=== PATIENT | male | born 1945 | race African-American/Black ===

== ENCOUNTER 2018-06-08 12:04 | Inpatient (IN) | payer MEDICARE ==
[2018-06-08] MEDS ORDERED: Sodium Chloride 0.65% Nasal 44 ML BOT EA NARE PRN (15:04)
[2018-06-08] MEDS ORDERED: Chloraseptic Spray 180 ml Bottle PO PRN (15:04)
[2018-06-08] MEDS ORDERED: Senokot 8.6 MG TAB PO PRN (15:04)
[2018-06-08] MEDS ORDERED: Milk Of Magnesia 30 ML UDCUP PO PRN (15:04)
[2018-06-08] MEDS ORDERED: Acetaminophen 325 MG TAB PO PRN (15:04)
[2018-06-08] MEDS ORDERED: Ondansetron HCl/PF 4 MG/2 ML Vial IVP PRN (15:04)
[2018-06-08] MEDS ORDERED: Diabetic Tussin 200 MG/10 ML UDCUP PO PRN (15:04)
[2018-06-08] MEDS ORDERED: Nitroglycerin 0.4 MG TAB (25 Tab Bottle) SL PRN (15:04)
[2018-06-08] MEDS ORDERED: hydrALAZINE 20 MG/ML VIAL SLOW IVP PRN (15:04)
[2018-06-08] MEDS ORDERED: Eucerin (Mineral Oil/Petrolatum,White) 30 gm Jar TOP PRN (15:04)
[2018-06-08] MEDS ORDERED: Ondansetron ODT 4 MG TAB PO PRN (15:04)
[2018-06-08] MEDS ORDERED: Loratadine 10 MG TAB PO PRN (15:04)
[2018-06-08] MEDS ORDERED: Mag-Al 1200 mg/1200 mg/30 ML UDCUP PO PRN (15:04)
[2018-06-08] MEDS ORDERED: Zolpidem Tartrate 5 MG TAB PO PRN (15:04)
[2018-06-08] MEDS ORDERED: Loperamide HCl 2 MG CAP PO PRN (15:04)
[2018-06-08] MEDS ORDERED: Artificial Tear Sol 15 ML BOT EA EYE PRN (15:04)
[2018-06-08] MEDS ORDERED: Labetalol HCl 100 MG/20 ML VIAL SLOW IVP PRN (15:04)
[2018-06-08 15:46] VITALS: BMI 18.6
--- NOTE | 2018-06-08 16:08 | HP ---
PRIMARY CARE PHYSICIAN: Dr. Nnamdi Alas. REASON FOR ADMISSION: Transfer from [facility] for left fourth toe infection. HISTORY OF PRESENT ILLNESS: A 72-year-old male who has a history of coronary artery disease, history of prostate cancer, as well as ongoing tobacco abuse disorder, who initially went t o [facility] for evaluation of left fourth toe infection. The patient does not know how i nfection started on the left fourth toe, but [id number]-ide noted that on Wednesday, the patient toenai l fall off and subsequently, they soaked foot in warm water Clorox and bunch of maggots came out on . The patient saw his primary care physician yesterday who [facility] and that is why family member brought him to emergency room for evaluation today. Letitia campos did not have any fever. He denies any trauma. He denies any insect bite. He denies any night swe ats. His pain is too bad about 9/10 in intensity. There is no specific aggravating or relieving fac tor. He describes pain as throbbing in nature. The patient was treated with vancomycin, Zosyn, and he was given tetanus toxoid and Zofran and morphi ne at [facility]. Subsequently, he was transferred to our hospital for higher level of ca re. The patient denies any diabetes history. REVIEW OF SYSTEMS: Please see my HPI for pertinent positive and negative. All other review of syste ms reviewed and negative except as mentioned in the HPI. Constitutional: Weight loss or gain, ability to conduct usual activities. Skin: Rash, itching. Eyes: Double vision, pain. ENT/Mouth: Nose bleeding, neck stiffness, pain, tenderness. Cardiovascular: Palpitations, dyspnea on exertion, orthopnea. Respiratory: Shortness of breath, wheezing, cough, hemoptysis, fever or night sweats. Gastrointestinal: Poor appetite, abdominal pain, heartburn, nausea, vomiting, constipation, or diarrhea. Genitourinary: Urgency, frequency, dysuria, nocturia. Musculoskeletal: Pain, swelling. Neurologic/Psychiatric: Anxiety, depression. Allergy/Immunologic: Skin rash, bleeding tendency. ALLERGIES: No known drug allergy. CURRENT HOME MEDICATIONS: Aspirin 81 mg daily, Lipitor 20 mg p.o. at bedtime, bicalutamide 50 mg p.o . daily, Plavix 75 mg p.o. daily, Lasix 40 mg p.o. daily, Toprol-XL 50 mg p.o. daily, nitroglycerin 0 .4 mg sublingual daily, multivitamin 1 tablet p.o. daily, Protonix 40 mg p.o. daily, potassium chlori de 10 mEq p.o. daily, Tylenol 1 gram q.6 hourly p.r.n., valsartan 80 mg p.o. daily. 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 PAST SURGICAL HISTORY: Stomach surgery for ulcer, partial amputation of bilateral second to fifth fi nger from frostbite, cardiac catheterization with stent placement. PAST PSYCHIATRIC HISTORY: Reviewed and negative. SOCIAL HISTORY: The patient lives with his son and [id number]. He drinks alcohol socially. He smokes about half pack per day. He denies any other illicit drug abuse. He ambulates with a walker . FAMILY HISTORY: No strong family history of premature coronary artery disease, stroke or cancer. EMERGENCY ROOM COURSE: The patient is given vancomycin, Zosyn, Zofran, morphine, tetanus toxoid at [facility]. PHYSICAL EXAMINATION: VITAL SIGNS: On arrival, blood pressure 181/84, pulse 63, respiratory rate 17, temperature 97.9, sat uration 98% on room air, weight 81.6 kilograms. GENERAL: The patient is currently alert, awake, no obvious acute distress. HEAD: Normocephalic, atraumatic. EYES: Pupils round, reactive to light. Extraocular muscle intact. ENT: Oropharynx within normal limits. Moist mucous membranes. No oral lesion, no pharyngeal erythe ma, no exudate. NECK: Supple, no JVD, no thyromegaly, no carotid bruit, no jugular venous distention. LUNGS: Clear to auscultation without any rhonchi or rales. CARDIAC: S1, S2 appears regular. No significant murmur noted, no gallop, no rub. ABDOMEN: Soft, bowel sounds present, nontender, nondistended. No organomegaly, no mass, no suprapub ic tenderness. BACK: Unremarkable. No CVA tenderness. EXTREMITIES: Upper extremity: Passive movement of all joints are normal. Lower extremity: The pat ient does have fourth toe gangrenous type of changes with the nail came out. Tenderness, erythema no josh surrounding that left fourth toe. The patient does have toenail dystrophy. The patient also hahn s have hair loss on both lower extremities. NEUROLOGIC: Nonfocal examination. He moves all 4 limbs. Plantar bilateral flexor. Speech normal. SKIN: No skin rash other than toe cellulitis on the left side on the fourth toe with possible gangre nous changes. PSYCHIATRIC: Normal affect. HEMATOLOGIC: No lymphadenopathy. SIGNIFICANT LABORATORY DATA: CBC: WBC 4.2, hemoglobin 10.1, platelet 230. ESR 103. BMP: Sodium 1 42, potassium 3.8, chloride 106, carbon dioxide 23, anion gap 17, BUN 14, creatinine 0.75, glucose 92 , calcium 10.0. Lactic acid 1.5. LFT: AST 23, ALT 15, alkaline phosphatase 93. CK 44, albumin 4.2 . CRP 1.89. ASSESSMENT AND PLAN: 1. Left fourth toe cellulitis/gangrene, rule out osteomyelitis. This patient had a several maggots as per history. His toe is macerated and he has a toenail came out. His wound is surrounded by eryt buzz and tenderness. At this point, this patient is at high risk for osteomyelitis given his poor ci rculation. He will need MRI of left foot. If toe has osteomyelitis, then we have 2 options, one is IV antibiotic therapy in that case, he will need PICC line and we will consult Dr. Donnelly. If family members and the patient choose surgical option, then we will consult General Surgery for toe amputati on and after that the patient will need wound care as well. We will consult Wound Care team while in hospital as well. We will control his pain with morphine 4 mg every 4 hourly. Smoking cessation co unseling given. If patient decides for surgical intervention, then he will need vascular study to ru le out peripheral vascular disease. Meanwhile, we will continue with empiric antibiotic therapy with vancomycin and Zosyn. Heart healthy diet will be given and we will also provide nutritional supplem ent with Ancelmo b.i.d. to promote wound healing. 2. Coronary artery disease with a history of stent. We will continue aspirin 81 mg p.o. daily, Plav ix 75 mg p.o. daily, Toprol-XL 50 mg p.o. daily and Lipitor 20 mg p.o. at bedtime. We will also cont inue valsartan 80 mg p.o. daily. 3. Dyslipidemia. Continue Lipitor 20 mg p.o. at bedtime. 4. History of congestive heart failure. Currently, the patient appears euvolemic. Type of congesti ve heart failure is not known, but patient is not admitted for congestive heart failure and that is w hy at this point, we will not do echocardiography. Based on his medication, I am suspecting he might have systolic heart failure. We will continue Toprol-XL 50 mg daily, valsartan 80 mg p.o. daily and Lasix 40 mg p.o. daily. 5. Hypertension. We will continue valsartan 80 mg p.o. daily, Toprol-XL 50 mg p.o. daily and will u se p.r.n. basis blood pressure medication. 6. Gastroesophageal reflux disease. We will continue Protonix 40 mg p.o. daily. 7. Tobacco abuse disorder. Smoking cessation counseling given. Healthy lifestyle measures discusse d with the patient. 8. History of prostate cancer. We will continue bicalutamide 50 mg p.o. daily. 9. Leukopenia, likely due to underlying infection. 10. DVT prophylaxis. Lovenox 40 mg subcu daily. 11. Gastrointestinal prophylaxis, Protonix 40 mg p.o. daily. 12. Anemia, normocytic, normochromic. We will continue multivitamin 1 tablet p.o. daily and ferrous sulfate 325 mg p.o. daily. 13. Tobacco abuse disorder. Smoking cessation counseling given. Healthy lifestyle measures discuss ed with the patient and will provide nicotine patch if needed while in hospital. CODE STATUS: The patient is FULL CODE. Patient's son is surrogate decision maker. Disposition plan based on clinical course. We are expecting patient's stay in hospital more than 2 m idnights. Plan of care discussed with the family member in detail.
[2018-06-08] MEDS: Piperacillin/Tazobactam 3.375 GM in Sodium Chloride 0.9% 100 ML IVPB SCH ×2 (16:40→22:12)
[2018-06-08] MEDS: Nicotine 21 MG PATCH TD SCH (16:40)
[2018-06-08] MEDS: Vancomycin HCl 1 GM in Premix Bag 1 BAG IVPB SCH (16:49)
[2018-06-08] MEDS: HYDROcodone/Acetaminophen 5/325 mg Tablet PO PRN (20:27)
[2018-06-08] MEDS: Atorvastatin Calcium 20 MG TAB PO SCH (20:27)
[2018-06-08] MEDS ORDERED: Famotidine 20 MG TAB PO SCH (21:00)
[2018-06-09] MEDS: HYDROcodone/Acetaminophen 5/325 mg Tablet PO PRN ×2 (03:22→16:22)
[2018-06-09] MEDS: Piperacillin/Tazobactam 3.375 GM in Sodium Chloride 0.9% 100 ML IVPB SCH ×4 (04:41→21:52)
[2018-06-09 05:30] LABS: #Eosinphils 0.1 thou/uL (0.0-0.7); #Lymphocytes 0.9 thou/uL (1.20-3.40); #Monocytes 0.4 thou/uL (0.11-0.59); #Neutrophils 1.9 thou/uL (1.40-6.50); %Basophils 0.1 % (0.0-1.0); %Eosinophils 1.5 % (0.0-10.0); %Lymphocytes 27.9 % (21.0-51.0); %Monocytes 12.3 % (0.0-10.0); %Neutrophils 58.2 % (42.0-75.0); Hemoglobin 9.5 g/dL (14.0-18.0); Mean Corpuscular HGB CONC 31.9 g/dL (32.0-36.0); Mean Corpuscular Hemoglobin 27.9 pg (27.0-31.0); Mean Corpuscular Volume 87.5 fL (78.0-98.0); Mean Platelet Volume 9.3 fL (7.4-10.4); Platelet Count 164 thou/uL (130-400); RBC Distribution Width 15.8 % (11.5-14.5); White Blood Cell (WBC) Count 3.3 thou/uL (4.8-10.8)
[2018-06-09] MEDS: Morphine 4 MG/ML VIAL SLOW IVP PRN ×2 (05:51→20:03)
[2018-06-09] MEDS: Vancomycin HCl 1 GM in Premix Bag 1 BAG IVPB SCH ×2 (05:51→17:29)
[2018-06-09 05:54] LABS: Anion Gap 11 mmol/L (10-20); BUN (Urea Nitrogen) 15 mg/dL (8.4-25.7); Calc. Creatinine Clearance 80 mL/min (70-130); Calcium 9.5 mg/dL (7.8-10.44); Carbon Dioxide 24 mmol/L (23-31); Chloride 107 mmol/L (98-107); Estimated GFR-MDRD Greater than 90; Glucose 89 mg/dL (83-110); Potassium 3.4 mmol/L (3.5-5.1); Sodium 139 mmol/L (136-145)
[2018-06-09] MEDS ORDERED: Potassium Chloride 20 MEQ TAB PO SCH (07:45)
[2018-06-09] MEDS: Enoxaparin Sodium 40 MG/0.4 ML SYRINGE SC SCH (08:06)
[2018-06-09] MEDS: Furosemide 40 MG TAB PO SCH (08:06)
[2018-06-09] MEDS: Saccharomyces boulardii 250 MG CAP PO SCH (08:06)
[2018-06-09] MEDS: Clopidogrel Bisulfate 75 MG TAB PO SCH (08:06)
[2018-06-09] MEDS: Potassium Chloride 10 MEQ TAB PO SCH (08:07)
[2018-06-09] MEDS: Bicalutamide 50 MG TAB PO SCH (08:07)
[2018-06-09] MEDS: Multivitamin W/ Minerals 1 TAB PO SCH (08:07)
[2018-06-09] MEDS: Valsartan 80 MG TAB PO SCH (08:12)
--- NOTE | 2018-06-09 12:17 | PDOC.PN ---
- Subjective Encounter Start Date: 06/09/18 Encounter Start Time: 09:30 -: old records requested/rev Patient seen and examined. No new complaints. No overnight events no fever, still has toe pain, - Objective Resuscitation Status: Resuscitation Status FULL:Full Resuscitation MAR Reviewed: Yes Vital Signs & Weight: Vital Signs (12 hours) Temp Pulse Resp BP Pulse Ox 06/09/18 08:00 97.8 F 62 14 125/72 100 06/09/18 04:00 98.1 F 68 16 136/75 100 Weight Weight 145 lb 4 oz I&O: 06/08/18 06/09/18 06/10/18 06:59 06:59 06:59 Intake Total 240 860 Balance 240 860 Result Diagrams: 06/09/18 04:50 06/09/18 04:50 Radiology Reviewed by me: Yes Phys Exam - Physical Examination Constitutional: NAD HEENT: PERRLA, moist MMs, sclera anicteric Neck: no JVD, supple Respiratory: no wheezing, no rales, no rhonchi Cardiovascular: RRR, no significant murmur, no rub Gastrointestinal: soft, non-tender, no distention, positive bowel sounds Musculoskeletal: no edema, pulses present toe gangrene on left side Neurological: non-focal, normal sensation, moves all 4 limbs Lymphatic: no nodes Psychiatric: normal affect, A&O x 3 Skin: no rash, normal turgor Dx/Plan (1) Gangrene of toe of left foot Code(s): I96 - GANGRENE, NOT ELSEWHERE CLASSIFIED Status: Acute (2) Hypokalemia Code(s): E87.6 - HYPOKALEMIA Status: Acute (3) Leucopenia Code(s): D72.819 - DECREASED WHITE BLOOD CELL COUNT, UNSPECIFIED Status: Acute (4) Anemia, normocytic normochromic Code(s): D64.9 - ANEMIA, UNSPECIFIED Status: Chronic (5) CAD (coronary artery disease) Code(s): I25.10 - ATHSCL HEART DISEASE OF [place] CORONARY ARTERY W/O ANG PCTRS Status: Chronic (6) Chronic systolic heart failure, ACC/AHA stage C Code(s): I50.22 - CHRONIC SYSTOLIC (CONGESTIVE) HEART FAILURE Status: Chronic (7) Dyslipidemia Code(s): E78.5 - HYPERLIPIDEMIA, UNSPECIFIED Status: Chronic (8) GERD (gastroesophageal reflux disease) Code(s): K21.9 - GASTRO-ESOPHAGEAL REFLUX DISEASE WITHOUT ESOPHAGITIS Status: Chronic (9) H/O prostate cancer Code(s): Z85.46 - PERSONAL HISTORY OF MALIGNANT NEOPLASM OF PROSTATE Status: Chronic (10) Protein-calorie malnutrition, moderate Code(s): E44.0 - MODERATE PROTEIN-CALORIE MALNUTRITION Status: Chronic (11) Tobacco abuse Code(s): Z72.0 - TOBACCO USE Status: Chronic - Plan cont current plan of care, continue antibiotics * continue vancomycin and zosyn * pain control wih mophin * today will get US arterial doppler to rule out PAD * MRI foot pending * follow culure * wound care * further plan based on MRI . Review of Systems - Review of Systems Constitutional: negative: fever, chills, sweats, weakness, malaise, other Eyes: negative: Pain, Vision Change, Conjunctivae Inflammation, Eyelid Inflammation, Redness, Other ENT: negative: Ear Pain, Ear Discharge, Nose Pain, Nose Discharge, Nose Congestion, Mouth Pain, Mouth Swelling, Throat Pain, Throat Swelling, Other Respiratory: negative: Cough, Dry, Shortness of Breath, Hemoptysis, SOB with Excertion, Pleuritic Pain, Sputum, Wheezing Cardiovascular: negative: chest pain, palpitations, orthopnea, paroxysmal nocturnal dyspnea, edema, light headedness, other Gastrointestinal: negative: Nausea, Vomiting, Abdominal Pain, Diarrhea, Constipation, Melena, Hematochezia, Other Genitourinary: negative: Dysuria, Frequency, Incontinence, Hematuria, Retention , Other Musculoskeletal: Foot Pain. negative: Neck Pain, Shoulder Pain, Arm Pain, Back Pain, Hand Pain, Leg Pain, Other Skin: negative: Rash, Lesions, [place]on, Bruising, Other - Medications/Allergies Allergies/Adverse Reactions: Allergies Allergy/AdvReac Type Severity Reaction Status Date / Time No Known Drug Allergies Allergy Verified 06/09/18 04:17 Medications: Current Medications Acetaminophen (Tylenol) 650 mg PO Q4H PRN PRN Reason: Headache/Fever or Pain Hydrocodone Bitart/Acetaminophen ([place] 5/325) 1 tab PO Q4H PRN PRN Reason: Moderate Pain (4-6) Last Admin: 06/09/18 03:22 Dose: 1 tab Al Hydroxide/Mg Hydroxide (Maalox) 30 ml PO Q6H PRN PRN Reason: Heartburn or Indigestion Artificial Tears (Tears Renewed 15ml Bottle) 0 drop EA EYE PRN PRN PRN Reason: Dry Eyes Aspirin (Aspirin Chewable) 81 mg PO DAILY [facility] Last Admin: 06/09/18 08:06 Dose: 81 mg Atorvastatin Calcium (Lipitor) 20 mg PO HS [facility] Last Admin: 06/08/18 20:27 Dose: 20 mg Bicalutamide (Casodex) 50 mg PO DAILY [facility] Last Admin: 06/09/18 08:07 Dose: 50 mg Clopidogrel Bisulfate (Plavix) 75 mg PO DAILY [facility] Last Admin: 06/09/18 08:06 Dose: 75 mg Enoxaparin Sodium (Lovenox) 40 mg SC 0900 [facility] Last Admin: 06/09/18 08:06 Dose: 40 mg Furosemide (Lasix) 40 mg PO DAILY-AC [facility] Last Admin: 06/09/18 08:06 Dose: 40 mg Guaifenesin (Robitussin Sf) 200 mg PO Q4H PRN PRN Reason: Cough Hydralazine HCl (Apresoline) 10 mg SLOW IVP Q4H PRN PRN Reason: Systolic BP > 180 Piperacillin Sod/Tazobactam (Sod 3.375 gm/ Sodium Chloride) 100 mls @ 200 mls/ hr IVPB 0400,1000,1600,2200 [facility] Last Admin: 06/09/18 09:55 Dose: 100 mls Vancomycin HCl 1 gm/ Device 200 mls @ 200 mls/hr IVPB 0500,1700 [facility] Last Admin: 06/09/18 05:51 Dose: 200 mls Iron/Minerals/Multivitamins (Theragran M) 1 tab PO DAILY [facility] Last Admin: 06/09/18 08:07 Dose: 1 tab Labetalol HCl (Normodyne) 20 mg SLOW IVP Q4H PRN PRN Reason: Systolic BP > 180 Loperamide HCl (Imodium) 2 mg PO PRN PRN PRN Reason: Diarrhea/Loose Stools Loratadine (Claritin) 10 mg PO DAILYPRN PRN PRN Reason: Sinus Symptoms Magnesium Hydroxide (Milk Of Magnesium) 30 ml PO DAILYPRN PRN PRN Reason: Constipation Mineral Oil/White Petrolatum (Eucerin Cream) 0 gm TOP BIDPRN PRN PRN Reason: Dry Skin Miscellaneous Medication (Pharmacy To Dose) 1 each IVPB PRN PRN PRN Reason: Pharmacy to dose Morphine Sulfate (Morphine) 4 mg SLOW IVP Q4H PRN PRN Reason: Pain Last Admin: 06/09/18 05:51 Dose: 4 mg Nicotine (Nicoderm Patch) 21 mg TD Q24HR [facility] Last Admin: 06/08/18 16:40 Dose: 21 mg Nitroglycerin (Nitrostat) 0.4 mg SL Q5MIN PRN PRN Reason: Chest Pain Ondansetron HCl (Zofran Odt) 4 mg PO Q6H PRN PRN Reason: Nausea/Vomiting Ondansetron HCl (Zofran) 4 mg IVP Q6H PRN PRN Reason: Nausea/Vomiting Pantoprazole Sodium (Protonix) 40 mg PO DAILY [facility] Last Admin: 06/09/18 08:07 Dose: 40 mg Phenol (Chloraseptic [place] 180 Ml Bot) 0 ml PO PRN PRN PRN Reason: Sore Throat Potassium Chloride (Klor-Con 10) 10 meq PO QA-[facility] Last Admin: 06/09/18 08:07 Dose: 10 meq Saccharomyces Boulardii (Florastor) 250 mg PO DAILY [facility] Last Admin: 06/09/18 08:06 Dose: 250 mg Senna (Senokot) 2 tab PO HSPRN PRN PRN Reason: Constipation Sodium Chloride ([place] Nasal [place] 0.65%) 0 ml EA NARE QIDPRN PRN PRN Reason: Nasal Congestion Valsartan (Diovan) 80 mg PO DAILY [facility] Last Admin: 06/09/18 08:12 Dose: 80 mg Zolpidem Tartrate (Ambien) 5 mg PO HSPRN PRN PRN Reason: Insomnia
[2018-06-09] MEDS: Nicotine 21 MG PATCH TD SCH (16:22)
[2018-06-09] MEDS: Atorvastatin Calcium 20 MG TAB PO SCH (19:56)
[2018-06-10] MEDS: Piperacillin/Tazobactam 3.375 GM in Sodium Chloride 0.9% 100 ML IVPB SCH ×4 (03:15→21:42)
[2018-06-10] MEDS: Vancomycin HCl 1 GM in Premix Bag 1 BAG IVPB SCH ×2 (04:44→17:02)
[2018-06-10] MEDS: Morphine 4 MG/ML VIAL SLOW IVP PRN ×2 (04:52→19:05)
[2018-06-10 05:03] LABS: Vancomycin, Trough 13.6 ug/mL
[2018-06-10] MEDS: Enoxaparin Sodium 40 MG/0.4 ML SYRINGE SC SCH (07:48)
[2018-06-10] MEDS: Bicalutamide 50 MG TAB PO SCH (07:49)
[2018-06-10] MEDS: Multivitamin W/ Minerals 1 TAB PO SCH (07:49)
[2018-06-10] MEDS: Saccharomyces boulardii 250 MG CAP PO SCH (07:49)
[2018-06-10] MEDS: Potassium Chloride 10 MEQ TAB PO SCH (07:49)
[2018-06-10] MEDS: Valsartan 80 MG TAB PO SCH (07:49)
[2018-06-10] MEDS: Clopidogrel Bisulfate 75 MG TAB PO SCH (07:50)
[2018-06-10] MEDS: Furosemide 40 MG TAB PO SCH (07:50)
--- NOTE | 2018-06-10 11:47 | PDOC.PN ---
- Subjective Encounter Start Date: 06/10/18 Encounter Start Time: 07:50 pt has pain in his left foot, toe is not improving with antibiotics, was not able to keep foot still while in MRI - Objective Resuscitation Status: Resuscitation Status FULL:Full Resuscitation MAR Reviewed: Yes Vital Signs & Weight: Vital Signs (12 hours) Temp Pulse Resp BP Pulse Ox 06/10/18 08:00 97.6 F 73 16 100 06/10/18 07:49 97.6 F 73 16 144/86 H 100 06/10/18 04:00 97.9 F 67 18 156/81 H 99 06/10/18 00:00 97.6 F 68 20 157/83 H 98 Weight Admit Weight 145 lb 4 oz Weight 145 lb 4 oz I&O: 06/09/18 06/10/18 06/11/18 06:59 06:59 06:59 Intake Total 240 1460 360 Balance 240 1460 360 Result Diagrams: 06/09/18 04:50 06/09/18 04:50 Radiology Reviewed by me: Yes Phys Exam - Physical Examination Constitutional: NAD HEENT: PERRLA, moist MMs, sclera anicteric Neck: no JVD, supple Respiratory: no wheezing, no rales, no rhonchi Cardiovascular: RRR, no significant murmur, no rub Gastrointestinal: soft, non-tender, no distention, positive bowel sounds Musculoskeletal: no edema feeble pulse, 4th toe gangrene on left noted Neurological: non-focal, normal sensation, moves all 4 limbs Lymphatic: no nodes Psychiatric: normal affect, A&O x 3 Skin: no rash, normal turgor Dx/Plan (1) Gangrene of toe of left foot Code(s): I96 - GANGRENE, NOT ELSEWHERE CLASSIFIED Status: Acute (2) Hypokalemia Code(s): E87.6 - HYPOKALEMIA Status: Acute (3) Leucopenia Code(s): D72.819 - DECREASED WHITE BLOOD CELL COUNT, UNSPECIFIED Status: Acute (4) Anemia, normocytic normochromic Code(s): D64.9 - ANEMIA, UNSPECIFIED Status: Chronic (5) CAD (coronary artery disease) Code(s): I25.10 - ATHSCL HEART DISEASE OF [place] CORONARY ARTERY W/O ANG PCTRS Status: Chronic (6) Chronic systolic heart failure, ACC/AHA stage C Code(s): I50.22 - CHRONIC SYSTOLIC (CONGESTIVE) HEART FAILURE Status: Chronic (7) Dyslipidemia Code(s): E78.5 - HYPERLIPIDEMIA, UNSPECIFIED Status: Chronic (8) GERD (gastroesophageal reflux disease) Code(s): K21.9 - GASTRO-ESOPHAGEAL REFLUX DISEASE WITHOUT ESOPHAGITIS Status: Chronic (9) H/O prostate cancer Code(s): Z85.46 - PERSONAL HISTORY OF MALIGNANT NEOPLASM OF PROSTATE Status: Chronic (10) Protein-calorie malnutrition, moderate Code(s): E44.0 - MODERATE PROTEIN-CALORIE MALNUTRITION Status: Chronic (11) Tobacco abuse Code(s): Z72.0 - TOBACCO USE Status: Chronic - Plan cont current plan of care, continue antibiotics * suspecting PAD, will consult CT surgeon for further evaluation * MRI result is pending, doubt it was good quality * US arterial doppler result is pending * medication reviewed as below * symptomatic treatment * continue wound care * continue pain control * continue empiric vancomycin and zosyn. Review of Systems - Review of Systems Constitutional: negative: fever, chills, sweats, weakness, malaise, other Eyes: negative: Pain, Vision Change, Conjunctivae Inflammation, Eyelid Inflammation, Redness, Other ENT: negative: Ear Pain, Ear Discharge, Nose Pain, Nose Discharge, Nose Congestion, Mouth Pain, Mouth Swelling, Throat Pain, Throat Swelling, Other Respiratory: negative: Cough, Dry, Shortness of Breath, Hemoptysis, SOB with Excertion, Pleuritic Pain, Sputum, Wheezing Cardiovascular: negative: chest pain, palpitations, orthopnea, paroxysmal nocturnal dyspnea, edema, light headedness, other Gastrointestinal: negative: Nausea, Vomiting, Abdominal Pain, Diarrhea, Constipation, Melena, Hematochezia, Other Genitourinary: negative: Dysuria, Frequency, Incontinence, Hematuria, Retention , Other Musculoskeletal: Foot Pain. negative: Neck Pain, Shoulder Pain, Arm Pain, Back Pain, Hand Pain, Leg Pain, Other - Medications/Allergies Allergies/Adverse Reactions: Allergies Allergy/AdvReac Type Severity Reaction Status Date / Time No Known Drug Allergies Allergy Verified 06/09/18 04:17 Medications: Current Medications Acetaminophen (Tylenol) 650 mg PO Q4H PRN PRN Reason: Headache/Fever or Pain Hydrocodone Bitart/Acetaminophen ([place] 5/325) 1 tab PO Q4H PRN PRN Reason: Moderate Pain (4-6) Last Admin: 06/09/18 16:22 Dose: 1 tab Al Hydroxide/Mg Hydroxide (Maalox) 30 ml PO Q6H PRN PRN Reason: Heartburn or Indigestion Artificial Tears (Tears Renewed 15ml Bottle) 0 drop EA EYE PRN PRN PRN Reason: Dry Eyes Aspirin (Aspirin Chewable) 81 mg PO DAILY [facility] Last Admin: 06/10/18 07:49 Dose: 81 mg Atorvastatin Calcium (Lipitor) 20 mg PO HS [facility] Last Admin: 06/09/18 19:56 Dose: 20 mg Bicalutamide (Casodex) 50 mg PO DAILY [facility] Last Admin: 06/10/18 07:49 Dose: 50 mg Clopidogrel Bisulfate (Plavix) 75 mg PO DAILY [facility] Last Admin: 06/10/18 07:50 Dose: 75 mg Enoxaparin Sodium (Lovenox) 40 mg SC 0900 [facility] Last Admin: 06/10/18 07:48 Dose: 40 mg Furosemide (Lasix) 40 mg PO DAILY-AC [facility] Last Admin: 06/10/18 07:50 Dose: 40 mg Guaifenesin (Robitussin Sf) 200 mg PO Q4H PRN PRN Reason: Cough Hydralazine HCl (Apresoline) 10 mg SLOW IVP Q4H PRN PRN Reason: Systolic BP > 180 Piperacillin Sod/Tazobactam (Sod 3.375 gm/ Sodium Chloride) 100 mls @ 200 mls/ hr IVPB 0400,1000,1600,2200 [facility] Last Admin: 06/10/18 10:17 Dose: 100 mls Vancomycin HCl 1 gm/ Device 200 mls @ 200 mls/hr IVPB 0500,1700 [facility] Last Admin: 06/10/18 04:44 Dose: 200 mls Iron/Minerals/Multivitamins (Theragran M) 1 tab PO DAILY [facility] Last Admin: 06/10/18 07:49 Dose: 1 tab Labetalol HCl (Normodyne) 20 mg SLOW IVP Q4H PRN PRN Reason: Systolic BP > 180 Loperamide HCl (Imodium) 2 mg PO PRN PRN PRN Reason: Diarrhea/Loose Stools Loratadine (Claritin) 10 mg PO DAILYPRN PRN PRN Reason: Sinus Symptoms Magnesium Hydroxide (Milk Of Magnesium) 30 ml PO DAILYPRN PRN PRN Reason: Constipation Mineral Oil/White Petrolatum (Eucerin Cream) 0 gm TOP BIDPRN PRN PRN Reason: Dry Skin Miscellaneous Medication (Pharmacy To Dose) 1 each IVPB PRN PRN PRN Reason: Pharmacy to dose Morphine Sulfate (Morphine) 4 mg SLOW IVP Q4H PRN PRN Reason: Pain Last Admin: 06/10/18 04:52 Dose: 4 mg Nicotine (Nicoderm Patch) 21 mg TD Q24HR [facility] Last Admin: 06/09/18 16:22 Dose: 21 mg Nitroglycerin (Nitrostat) 0.4 mg SL Q5MIN PRN PRN Reason: Chest Pain Ondansetron HCl (Zofran Odt) 4 mg PO Q6H PRN PRN Reason: Nausea/Vomiting Ondansetron HCl (Zofran) 4 mg IVP Q6H PRN PRN Reason: Nausea/Vomiting Pantoprazole Sodium (Protonix) 40 mg PO DAILY [facility] Last Admin: 06/10/18 07:50 Dose: 40 mg Phenol (Chloraseptic [place] 180 Ml Bot) 0 ml PO PRN PRN PRN Reason: Sore Throat Potassium Chloride (Klor-Con 10) 10 meq PO QAM-WM [facility] Last Admin: 06/10/18 07:49 Dose: 10 meq Saccharomyces Boulardii (Florastor) 250 mg PO DAILY [facility] Last Admin: 06/10/18 07:49 Dose: 250 mg Senna (Senokot) 2 tab PO HSPRN PRN PRN Reason: Constipation Sodium Chloride ([place] Nasal [place] 0.65%) 0 ml EA NARE QIDPRN PRN PRN Reason: Nasal Congestion Valsartan (Diovan) 80 mg PO DAILY [facility] Last Admin: 06/10/18 07:49 Dose: 80 mg Zolpidem Tartrate (Ambien) 5 mg PO HSPRN PRN PRN Reason: Insomnia
--- NOTE | 2018-06-10 12:37 | CON ---
DATE OF CONSULTATION: 06/10/2018 HISTORY OF PRESENT ILLNESS: This is a 72-year-old gentleman admitted with some gangrenous changes in his left fourth toe that had been present for about a week according to the patient, although I thin k history is suspect. PAST MEDICAL HISTORY: Hypertension, dyslipidemia, coronary artery disease, longstanding smoking hist ory and alcoholism. PAST SURGICAL HISTORY: Includes finger amputations related to ruano bite on the left hand as well as previous coronary stent and stomach ulcer surgery. SOCIAL HISTORY: The patient is with his recently dying related to open heart surgery in the [place] area. He lives with a son and [id number]. He smokes about a pack of cigarettes a day and drinks a 6 pack of beer a day or more if he can get his hands on it. MEDICATIONS: Atorvastatin 20, aspirin 81, Plavix 75, Protonix 40, Lasix 40, Diovan 80, metoprolol 50 , and bicalutamide 50 a day. ALLERGIES: He reports no allergies. LABORATORY: Laboratory evaluation includes normal renal function. White count is 3300 with a platel et count of 164, hemoglobin of 9.5. PHYSICAL EXAMINATION: NECK: Left carotid bruit. CARDIAC: Regular rate and rhythm with a systolic murmur at the right upper sternal border area. ABDOMEN: Scaphoid, nontender. EXTREMITIES: He has palpable femoral and popliteal pulses bilaterally with no pedal pulses. He has a biphasic, but weak right dorsalis pedis signal. He has a monophasic left dorsalis pedis monophasic left perineal and I am unable to obtain a left posterior tibial signal. He has an open wound on the left fourth toe with no associated erythema, no tenderness to palpation of his foot. REVIEW OF SYSTEMS: The patient denies any chest pain. He does have a history of claudication in the left leg, but gets around with a walker now and does not experience difficulty walking due to his in active lifestyle. He has no dizziness or dyspnea on exertion. He denies any peripheral edema. He d oes occasionally have pain in that foot at night over the past week. PLAN: At this time, the patient has significant tibioperoneal disease and I suspect that an amputati on involving the toe would be unlikely to heal. I have offered to do angiography today and he is aram ble to make up his mind in regards to this. We will check with him tomorrow to see if he is interest ed in pursuing this. We will also obtain a carotid ultrasound given his carotid bruit.
--- NOTE | 2018-06-10 14:10 | ULT ---
CAROTID DOPPLER ULTRASOUND: Date: 06/10/18 HISTORY: Carotid bruit and peripheral arterial disease. COMPARISON: None. TECHNIQUE: Real-time Dejesus scale, color Doppler, and spectral analysis of the bilateral extracranial carotid and vertebral arteries was performed. FINDINGS: There are no elevated peak systolic velocities within the internal carotid arteries. Moderate atheros clerotic plaque. There is abnormally low peak systolic velocity within the right internal carotid artery measuring 12 cm/second. Right ICA/CCA ratio is 0.52. Left ICA/CCA ratio is 0.66. Antegrade flow both vertebral art eries. IMPRESSION: Abnormally low peak systolic velocity right internal carotid artery proximally. This may represent a more proximal stenosis. CT may be beneficial in this patient. POS: DIANA
[2018-06-10] MEDS: Nicotine 21 MG PATCH TD SCH (16:28)
[2018-06-10] MEDS: Atorvastatin Calcium 20 MG TAB PO SCH (20:00)
[2018-06-11] MEDS: Piperacillin/Tazobactam 3.375 GM in Sodium Chloride 0.9% 100 ML IVPB SCH ×4 (04:07→21:50)
[2018-06-11] MEDS: HYDROcodone/Acetaminophen 5/325 mg Tablet PO PRN ×3 (04:19→17:22)
[2018-06-11] MEDS: Vancomycin HCl 1 GM in Premix Bag 1 BAG IVPB SCH ×2 (05:24→18:16)
[2018-06-11 08:06] LABS: Hemoglobin 8.5 g/dL (14.0-18.0); Mean Corpuscular HGB CONC 32.1 g/dL (32.0-36.0); Mean Corpuscular Hemoglobin 27.6 pg (27.0-31.0); Mean Corpuscular Volume 85.8 fL (78.0-98.0); Mean Platelet Volume 8.1 fL (7.4-10.4); Platelet Count 153 thou/uL (130-400); RBC Distribution Width 15.6 % (11.5-14.5); Red Blood Cell (RBC) Count 3.08 mill/uL (4.70-6.10); White Blood Cell (WBC) Count 3.6 thou/uL (4.8-10.8)
[2018-06-11] MEDS: Furosemide 40 MG TAB PO SCH (08:06)
[2018-06-11] MEDS: Enoxaparin Sodium 40 MG/0.4 ML SYRINGE SC SCH ×2 (08:06→08:15)
[2018-06-11] MEDS: Ferrous Gluconate 324 MG TAB PO SCH (08:06)
[2018-06-11] MEDS: Valsartan 80 MG TAB PO SCH (08:06)
[2018-06-11] MEDS: Multivit, Therapeutic 1 TAB PO SCH (08:06)
[2018-06-11] MEDS: Saccharomyces boulardii 250 MG CAP PO SCH (08:06)
[2018-06-11] MEDS: Potassium Chloride 10 MEQ TAB PO SCH (08:06)
[2018-06-11] MEDS: Bicalutamide 50 MG TAB PO SCH (08:06)
[2018-06-11] MEDS: Clopidogrel Bisulfate 75 MG TAB PO SCH (08:06)
[2018-06-11 08:08] LABS: Prothrombin Time 13.3 SEC (12.0-14.7)
[2018-06-11 08:25] LABS: ALT (SGPT) 12 U/L (8-55); AST (SGOT) 15 U/L (5-34); Albumin 3.3 g/dL (3.4-4.8); Alkaline Phosphatase 70 U/L (40-150); Anion Gap 10 mmol/L (10-20); BUN (Urea Nitrogen) 20 mg/dL (8.4-25.7); Bilirubin, Total 0.2 mg/dL (0.2-1.2); Calc. Creatinine Clearance 97 mL/min (70-130); Carbon Dioxide 25 mmol/L (23-31); Chloride 106 mmol/L (98-107); Estimated GFR-MDRD Greater than 90; Globulin 3.4 g/dL (2.4-3.5); Glucose 97 mg/dL (83-110); Potassium 3.8 mmol/L (3.5-5.1); Protein, Total 6.7 g/dL (5.8-8.1); Sodium 137 mmol/L (136-145)
[2018-06-11 08:44] LABS: Band 30 % (5-11); Eosinophils 2 % (0-10); Lymphocytes 27 % (21-51); MDiff Complete? YES; Metamyelocyte 6 % (0-0); Monocytes 4 % (0-10); Myelocyte 1 % (0-0); Neutrophil 26 % (42-75); Reactive Lymphocytes 4 % (0-10)
--- NOTE | 2018-06-11 11:42 | PDOC.PN ---
- Subjective Encounter Start Date: 06/11/18 Encounter Start Time: 09:30 Patient seen and examined. No overnight events pt has still pain in leg, no fever pt is agreed for angiography - Objective Resuscitation Status: Resuscitation Status FULL:Full Resuscitation MAR Reviewed: Yes Vital Signs & Weight: Vital Signs (12 hours) Temp Pulse Resp BP Pulse Ox 06/11/18 08:00 98.1 F 78 16 100 06/11/18 07:42 98.1 F 78 16 115/71 100 06/11/18 04:07 98.0 F 79 16 124/75 100 06/11/18 00:39 98.5 F 80 18 118/78 100 Weight Admit Weight 145 lb 4 oz Weight 145 lb 4 oz I&O: 06/10/18 06/11/18 06/12/18 06:59 06:59 06:59 Intake Total 1460 1607 Balance 1460 1607 Result Diagrams: 06/11/18 07:54 06/11/18 07:54 Phys Exam - Physical Examination Constitutional: NAD HEENT: PERRLA, moist MMs, sclera anicteric Neck: no JVD, supple carotid bruit+ Respiratory: no wheezing, no rales, no rhonchi Cardiovascular: RRR, no significant murmur, no rub Gastrointestinal: soft, non-tender, no distention, positive bowel sounds Musculoskeletal: no edema toe gangrene+ on left feeble pulse Neurological: non-focal, normal sensation, moves all 4 limbs Lymphatic: no nodes Psychiatric: normal affect, A&O x 3 Skin: no rash, normal turgor Dx/Plan (1) Gangrene of toe of left foot Code(s): I96 - GANGRENE, NOT ELSEWHERE CLASSIFIED Status: Acute (2) Hypokalemia Code(s): E87.6 - HYPOKALEMIA Status: Acute (3) Leucopenia Code(s): D72.819 - DECREASED WHITE BLOOD CELL COUNT, UNSPECIFIED Status: Acute (4) Anemia, normocytic normochromic Code(s): D64.9 - ANEMIA, UNSPECIFIED Status: Chronic (5) CAD (coronary artery disease) Code(s): I25.10 - ATHSCL HEART DISEASE OF [place] CORONARY ARTERY W/O ANG PCTRS Status: Chronic (6) Chronic systolic heart failure, ACC/AHA stage C Code(s): I50.22 - CHRONIC SYSTOLIC (CONGESTIVE) HEART FAILURE Status: Chronic (7) Dyslipidemia Code(s): E78.5 - HYPERLIPIDEMIA, UNSPECIFIED Status: Chronic (8) GERD (gastroesophageal reflux disease) Code(s): K21.9 - GASTRO-ESOPHAGEAL REFLUX DISEASE WITHOUT ESOPHAGITIS Status: Chronic (9) H/O prostate cancer Code(s): Z85.46 - PERSONAL HISTORY OF MALIGNANT NEOPLASM OF PROSTATE Status: Chronic (10) Protein-calorie malnutrition, moderate Code(s): E44.0 - MODERATE PROTEIN-CALORIE MALNUTRITION Status: Chronic (11) Tobacco abuse Code(s): Z72.0 - TOBACCO USE Status: Chronic (12) Carotid stenosis Code(s): I65.29 - OCCLUSION AND STENOSIS OF UNSPECIFIED CAROTID ARTERY Status : Chronic (13) PAD (peripheral artery disease) Code(s): I73.9 - PERIPHERAL VASCULAR DISEASE, UNSPECIFIED Status: Chronic - Plan cont current plan of care, continue antibiotics * continue vancomycin and zosyn * wound care * will need angiography and revascularization * medication reviewed as below * symptomatic treatment. Review of Systems - Review of Systems Eyes: negative: Pain, Vision Change, Conjunctivae Inflammation, Eyelid Inflammation, Redness, Other ENT: negative: Ear Pain, Ear Discharge, Nose Pain, Nose Discharge, Nose Congestion, Mouth Pain, Mouth Swelling, Throat Pain, Throat Swelling, Other Respiratory: negative: Cough, Dry, Shortness of Breath, Hemoptysis, SOB with Excertion, Pleuritic Pain, Sputum, Wheezing Cardiovascular: negative: chest pain, palpitations, orthopnea, paroxysmal nocturnal dyspnea, edema, light headedness, other Gastrointestinal: negative: Nausea, Vomiting, Abdominal Pain, Diarrhea, Constipation, Melena, Hematochezia, Other Genitourinary: negative: Dysuria, Frequency, Incontinence, Hematuria, Retention , Other Musculoskeletal: Foot Pain. negative: Neck Pain, Shoulder Pain, Arm Pain, Back Pain, Hand Pain, Leg Pain, Other Skin: negative: Rash, Lesions, [place]on, Bruising, Other - Medications/Allergies Allergies/Adverse Reactions: Allergies Allergy/AdvReac Type Severity Reaction Status Date / Time No Known Drug Allergies Allergy Verified 06/09/18 04:17 Medications: Current Medications Acetaminophen (Tylenol) 650 mg PO Q4H PRN PRN Reason: Headache/Fever or Pain Hydrocodone Bitart/Acetaminophen ([place] 5/325) 1 tab PO Q4H PRN PRN Reason: Moderate Pain (4-6) Last Admin: 06/11/18 08:25 Dose: 1 tab Al Hydroxide/Mg Hydroxide (Maalox) 30 ml PO Q6H PRN PRN Reason: Heartburn or Indigestion Artificial Tears (Tears Renewed 15ml Bottle) 0 drop EA EYE PRN PRN PRN Reason: Dry Eyes Aspirin (Aspirin Chewable) 81 mg PO DAILY [facility] Last Admin: 06/11/18 08:06 Dose: 81 mg Atorvastatin Calcium (Lipitor) 20 mg PO HS [facility] Last Admin: 06/10/18 20:00 Dose: 20 mg Bicalutamide (Casodex) 50 mg PO DAILY [facility] Last Admin: 06/11/18 08:06 Dose: 50 mg Clopidogrel Bisulfate (Plavix) 75 mg PO DAILY [facility] Last Admin: 06/11/18 08:06 Dose: 75 mg Enoxaparin Sodium (Lovenox) 40 mg SC 0900 [facility] Last Admin: 06/11/18 08:15 Dose: Not Given Ferrous Gluconate (Fergon) 324 mg PO QAM-WM [facility] Last Admin: 06/11/18 08:06 Dose: 324 mg Furosemide (Lasix) 40 mg PO DAILY-AC [facility] Last Admin: 06/11/18 08:06 Dose: 40 mg Guaifenesin (Robitussin Sf) 200 mg PO Q4H PRN PRN Reason: Cough Hydralazine HCl (Apresoline) 10 mg SLOW IVP Q4H PRN PRN Reason: Systolic BP > 180 Piperacillin Sod/Tazobactam (Sod 3.375 gm/ Sodium Chloride) 100 mls @ 200 mls/ hr IVPB 0400,1000,1600,2200 [facility] Last Admin: 06/11/18 10:32 Dose: 100 mls Vancomycin HCl 1 gm/ Device 200 mls @ 200 mls/hr IVPB 0500,1700 [facility] Last Admin: 06/11/18 05:24 Dose: 200 mls Labetalol HCl (Normodyne) 20 mg SLOW IVP Q4H PRN PRN Reason: Systolic BP > 180 Loperamide HCl (Imodium) 2 mg PO PRN PRN PRN Reason: Diarrhea/Loose Stools Loratadine (Claritin) 10 mg PO DAILYPRN PRN PRN Reason: Sinus Symptoms Magnesium Hydroxide (Milk Of Magnesium) 30 ml PO DAILYPRN PRN PRN Reason: Constipation Mineral Oil/White Petrolatum (Eucerin Cream) 0 gm TOP BIDPRN PRN PRN Reason: Dry Skin Miscellaneous Medication (Pharmacy To Dose) 1 each IVPB PRN PRN PRN Reason: Pharmacy to dose Morphine Sulfate (Morphine) 4 mg SLOW IVP Q4H PRN PRN Reason: Pain Last Admin: 06/10/18 19:05 Dose: 4 mg Multivitamins (Theragran) 1 tab PO DAILY [facility] Last Admin: 06/11/18 08:06 Dose: 1 tab Nicotine (Nicoderm Patch) 21 mg TD Q24HR [facility] Last Admin: 06/10/18 16:28 Dose: 21 mg Nitroglycerin (Nitrostat) 0.4 mg SL Q5MIN PRN PRN Reason: Chest Pain Ondansetron HCl (Zofran Odt) 4 mg PO Q6H PRN PRN Reason: Nausea/Vomiting Ondansetron HCl (Zofran) 4 mg IVP Q6H PRN PRN Reason: Nausea/Vomiting Pantoprazole Sodium (Protonix) 40 mg PO DAILY [facility] Last Admin: 06/11/18 08:06 Dose: 40 mg Phenol (Chloraseptic [place] 180 Ml Bot) 0 ml PO PRN PRN PRN Reason: Sore Throat Potassium Chloride (Klor-Con 10) 10 meq PO QA-[facility] Last Admin: 06/11/18 08:06 Dose: 10 meq Saccharomyces Boulardii (Florastor) 250 mg PO DAILY [facility] Last Admin: 06/11/18 08:06 Dose: 250 mg Senna (Senokot) 2 tab PO HSPRN PRN PRN Reason: Constipation Sodium Chloride ([place] Nasal [place] 0.65%) 0 ml EA NARE QIDPRN PRN PRN Reason: Nasal Congestion Valsartan (Diovan) 80 mg PO DAILY [facility] Last Admin: 06/11/18 08:06 Dose: 80 mg Zolpidem Tartrate (Ambien) 5 mg PO HSPRN PRN PRN Reason: Insomnia
[2018-06-11] MEDS: Nicotine 21 MG PATCH TD SCH (17:22)
[2018-06-11] MEDS: Atorvastatin Calcium 20 MG TAB PO SCH (20:15)
[2018-06-11] MEDS: Morphine 4 MG/ML VIAL SLOW IVP PRN (20:16)
[2018-06-12] MEDS: Piperacillin/Tazobactam 3.375 GM in Sodium Chloride 0.9% 100 ML IVPB SCH ×4 (04:35→20:50)
[2018-06-12] MEDS: Vancomycin HCl 1 GM in Premix Bag 1 BAG IVPB SCH ×2 (05:34→16:19)
[2018-06-12] MEDS: Furosemide 40 MG TAB PO SCH (08:02)
[2018-06-12] MEDS: Saccharomyces boulardii 250 MG CAP PO SCH (08:02)
[2018-06-12] MEDS: Valsartan 80 MG TAB PO SCH (08:02)
[2018-06-12] MEDS: Clopidogrel Bisulfate 75 MG TAB PO SCH (08:02)
[2018-06-12] MEDS: Bicalutamide 50 MG TAB PO SCH (08:02)
[2018-06-12] MEDS: Multivit, Therapeutic 1 TAB PO SCH (08:02)
[2018-06-12] MEDS: Enoxaparin Sodium 40 MG/0.4 ML SYRINGE SC SCH ×2 (08:03→08:09)
[2018-06-12] MEDS: Ferrous Gluconate 324 MG TAB PO SCH (08:03)
[2018-06-12] MEDS: Potassium Chloride 10 MEQ TAB PO SCH (08:03)
[2018-06-12] MEDS: HYDROcodone/Acetaminophen 5/325 mg Tablet PO PRN (09:08)
--- NOTE | 2018-06-12 10:29 | PDOC.PN ---
- Subjective Encounter Start Date: 06/12/18 Encounter Start Time: 09:40 Patient seen and examined. No new complaints. No overnight events - Objective Resuscitation Status: Resuscitation Status FULL:Full Resuscitation Vital Signs & Weight: Vital Signs (12 hours) Temp Pulse Resp BP Pulse Ox 06/12/18 07:54 98.2 F 73 16 126/68 100 06/12/18 04:35 97.6 F 74 16 121/70 99 06/12/18 00:07 97.5 F L 77 18 146/74 H 99 Weight Admit Weight 145 lb 4 oz Weight 145 lb 4 oz I&O: 06/11/18 06/12/18 06/13/18 06:59 06:59 06:59 Intake Total 1607 1641 Balance 1607 1641 Result Diagrams: 06/11/18 07:54 06/11/18 07:54 Phys Exam - Physical Examination Constitutional: NAD HEENT: PERRLA, moist MMs, sclera anicteric Neck: no JVD, supple Respiratory: no wheezing, no rales, no rhonchi Cardiovascular: RRR, no significant murmur, no rub Gastrointestinal: soft, non-tender, no distention, positive bowel sounds Musculoskeletal: no edema, pulses present Neurological: non-focal, normal sensation toe covered with dressing Lymphatic: no nodes Psychiatric: normal affect, A&O x 3 Skin: no rash, normal turgor Dx/Plan (1) Gangrene of toe of left foot Code(s): I96 - GANGRENE, NOT ELSEWHERE CLASSIFIED Status: Acute (2) Hypokalemia Code(s): E87.6 - HYPOKALEMIA Status: Acute (3) Leucopenia Code(s): D72.819 - DECREASED WHITE BLOOD CELL COUNT, UNSPECIFIED Status: Acute (4) Anemia, normocytic normochromic Code(s): D64.9 - ANEMIA, UNSPECIFIED Status: Chronic (5) CAD (coronary artery disease) Code(s): I25.10 - ATHSCL HEART DISEASE OF [place] CORONARY ARTERY W/O ANG PCTRS Status: Chronic (6) Chronic systolic heart failure, ACC/AHA stage C Code(s): I50.22 - CHRONIC SYSTOLIC (CONGESTIVE) HEART FAILURE Status: Chronic (7) Dyslipidemia Code(s): E78.5 - HYPERLIPIDEMIA, UNSPECIFIED Status: Chronic (8) GERD (gastroesophageal reflux disease) Code(s): K21.9 - GASTRO-ESOPHAGEAL REFLUX DISEASE WITHOUT ESOPHAGITIS Status: Chronic (9) H/O prostate cancer Code(s): Z85.46 - PERSONAL HISTORY OF MALIGNANT NEOPLASM OF PROSTATE Status: Chronic (10) Protein-calorie malnutrition, moderate Code(s): E44.0 - MODERATE PROTEIN-CALORIE MALNUTRITION Status: Chronic (11) Tobacco abuse Code(s): Z72.0 - TOBACCO USE Status: Chronic (12) Carotid stenosis Code(s): I65.29 - OCCLUSION AND STENOSIS OF UNSPECIFIED CAROTID ARTERY Status : Chronic (13) PAD (peripheral artery disease) Code(s): I73.9 - PERIPHERAL VASCULAR DISEASE, UNSPECIFIED Status: Chronic - Plan cont current plan of care, continue antibiotics * pt is planned for angiography for vasucular evaluation and possible intervention * medication reviewed as below * symptomatic treatment * wound care * he may need placement on discharge * will increase his oral norco for pain control * continue empiric antibiotics . Review of Systems - Review of Systems Eyes: negative: Pain, Vision Change, Conjunctivae Inflammation, Eyelid Inflammation, Redness, Other ENT: negative: Ear Pain, Ear Discharge, Nose Pain, Nose Discharge, Nose Congestion, Mouth Pain, Mouth Swelling, Throat Pain, Throat Swelling, Other Respiratory: negative: Cough, Dry, Shortness of Breath, Hemoptysis, SOB with Excertion, Pleuritic Pain, Sputum, Wheezing Cardiovascular: negative: chest pain, palpitations, orthopnea, paroxysmal nocturnal dyspnea, edema, light headedness, other Gastrointestinal: negative: Nausea, Vomiting, Abdominal Pain, Diarrhea, Constipation, Melena, Hematochezia, Other Genitourinary: negative: Dysuria, Frequency, Incontinence, Hematuria, Retention , Other Musculoskeletal: Leg Pain, Foot Pain. negative: Neck Pain, Shoulder Pain, Arm Pain, Back Pain, Hand Pain, Other - Medications/Allergies Allergies/Adverse Reactions: Allergies Allergy/AdvReac Type Severity Reaction Status Date / Time No Known Drug Allergies Allergy Verified 06/09/18 04:17 Medications: Current Medications Acetaminophen (Tylenol) 650 mg PO Q4H PRN PRN Reason: Headache/Fever or Pain Hydrocodone Bitart/Acetaminophen ([place] 10/325) 1 tab PO Q4H PRN PRN Reason: Pain Hydrocodone Bitart/Acetaminophen ([place] 10/325) 2 tab PO Q4H PRN PRN Reason: Pain Al Hydroxide/Mg Hydroxide (Maalox) 30 ml PO Q6H PRN PRN Reason: Heartburn or Indigestion Artificial Tears (Tears Renewed 15ml Bottle) 0 drop EA EYE PRN PRN PRN Reason: Dry Eyes Aspirin (Aspirin Chewable) 81 mg PO DAILY [facility] Last Admin: 06/12/18 08:02 Dose: 81 mg Atorvastatin Calcium (Lipitor) 20 mg PO HS [facility] Last Admin: 06/11/18 20:15 Dose: 20 mg Bicalutamide (Casodex) 50 mg PO DAILY [facility] Last Admin: 06/12/18 08:02 Dose: 50 mg Clopidogrel Bisulfate (Plavix) 75 mg PO DAILY [facility] Last Admin: 06/12/18 08:02 Dose: 75 mg Enoxaparin Sodium (Lovenox) 40 mg SC 0900 [facility] Last Admin: 06/12/18 08:09 Dose: Not Given Ferrous Gluconate (Fergon) 324 mg PO QAM-WM [facility] Last Admin: 06/12/18 08:03 Dose: 324 mg Furosemide (Lasix) 40 mg PO DAILY-AC [facility] Last Admin: 06/12/18 08:02 Dose: 40 mg Guaifenesin (Robitussin Sf) 200 mg PO Q4H PRN PRN Reason: Cough Hydralazine HCl (Apresoline) 10 mg SLOW IVP Q4H PRN PRN Reason: Systolic BP > 180 Piperacillin Sod/Tazobactam (Sod 3.375 gm/ Sodium Chloride) 100 mls @ 200 mls/ hr IVPB 0400,1000,1600,2200 [facility] Last Admin: 06/12/18 09:09 Dose: 100 mls Vancomycin HCl 1 gm/ Device 200 mls @ 200 mls/hr IVPB 0500,1700 [facility] Last Admin: 06/12/18 05:34 Dose: 200 mls Labetalol HCl (Normodyne) 20 mg SLOW IVP Q4H PRN PRN Reason: Systolic BP > 180 Loperamide HCl (Imodium) 2 mg PO PRN PRN PRN Reason: Diarrhea/Loose Stools Loratadine (Claritin) 10 mg PO DAILYPRN PRN PRN Reason: Sinus Symptoms Magnesium Hydroxide (Milk Of Magnesium) 30 ml PO DAILYPRN PRN PRN Reason: Constipation Mineral Oil/White Petrolatum (Eucerin Cream) 0 gm TOP BIDPRN PRN PRN Reason: Dry Skin Miscellaneous Medication (Pharmacy To Dose) 1 each IVPB PRN PRN PRN Reason: Pharmacy to dose Morphine Sulfate (Morphine) 4 mg SLOW IVP Q4H PRN PRN Reason: Pain Last Admin: 06/11/18 20:16 Dose: 4 mg Multivitamins (Theragran) 1 tab PO DAILY [facility] Last Admin: 06/12/18 08:02 Dose: 1 tab Nicotine (Nicoderm Patch) 21 mg TD Q24HR [facility] Last Admin: 06/11/18 17:22 Dose: 21 mg Nitroglycerin (Nitrostat) 0.4 mg SL Q5MIN PRN PRN Reason: Chest Pain Ondansetron HCl (Zofran Odt) 4 mg PO Q6H PRN PRN Reason: Nausea/Vomiting Ondansetron HCl (Zofran) 4 mg IVP Q6H PRN PRN Reason: Nausea/Vomiting Pantoprazole Sodium (Protonix) 40 mg PO DAILY [facility] Last Admin: 06/12/18 08:03 Dose: 40 mg Phenol (Chloraseptic [place] 180 Ml Bot) 0 ml PO PRN PRN PRN Reason: Sore Throat Potassium Chloride (Klor-Con 10) 10 meq PO QAM-WM [facility] Last Admin: 06/12/18 08:03 Dose: 10 meq Saccharomyces Boulardii (Florastor) 250 mg PO DAILY [facility] Last Admin: 06/12/18 08:02 Dose: 250 mg Senna (Senokot) 2 tab PO HSPRN PRN PRN Reason: Constipation Sodium Chloride ([place] Nasal [place] 0.65%) 0 ml EA NARE QIDPRN PRN PRN Reason: Nasal Congestion Valsartan (Diovan) 80 mg PO DAILY [facility] Last Admin: 06/12/18 08:02 Dose: 80 mg Zolpidem Tartrate (Ambien) 5 mg PO HSPRN PRN PRN Reason: Insomnia
[2018-06-12] MEDS: Morphine 4 MG/ML VIAL SLOW IVP PRN ×2 (11:49→16:14)
[2018-06-12 16:16] LABS: Bilirubin Negative (Negative); Blood, Urine Moderate (Negative); Clarity CLOUDY (Clear); Glucose, Urine (Dipstick) Negative (Negative); Leukocyte Small (Negative); Nitrite Negative (Negative); Protein, Urine (Dipstick) Negative (Neg-Trace); Specific Gravity, Urine 1.021 (1.002-1.036)
[2018-06-12 16:18] LABS: Bacteria/HPF None Seen HPF (None Seen); Hyaline Casts/LPF 0-3 HYALINE CAST LPF (0-3 Hyaline); Pathc Cast-AUWi Flag 0.58 (0-2.49); Squamous Epithelial 0-3 HPF (0-3); WBC/HPF 0-3 HPF (0-3)
[2018-06-12] MEDS: Nicotine 21 MG PATCH TD SCH (16:20)
[2018-06-12 16:51] LABS: Crystals/HPF 2+ CA OXALATE HPF (Negative)
[2018-06-12] MEDS: Atorvastatin Calcium 20 MG TAB PO SCH (20:50)
[2018-06-13] MEDS: Piperacillin/Tazobactam 3.375 GM in Sodium Chloride 0.9% 100 ML IVPB SCH ×4 (04:40→20:54)
[2018-06-13] MEDS: Morphine 4 MG/ML VIAL SLOW IVP PRN ×3 (05:31→18:07)
[2018-06-13] MEDS: Vancomycin HCl 1 GM in Premix Bag 1 BAG IVPB SCH ×2 (05:37→18:07)
[2018-06-13] MEDS ORDERED: Heparin 0 ML ONE (06:34)
[2018-06-13] MEDS ORDERED: Lidocaine 1% (PF) 30 ML VIAL ONE ×2 (06:34→06:52)
[2018-06-13] MEDS: Enoxaparin Sodium 40 MG/0.4 ML SYRINGE SC SCH (08:17)
[2018-06-13] MEDS: Furosemide 40 MG TAB PO SCH (08:17)
[2018-06-13] MEDS: Saccharomyces boulardii 250 MG CAP PO SCH (08:17)
[2018-06-13] MEDS: Clopidogrel Bisulfate 75 MG TAB PO SCH (08:18)
[2018-06-13] MEDS: Ferrous Gluconate 324 MG TAB PO SCH (08:18)
[2018-06-13] MEDS: Bicalutamide 50 MG TAB PO SCH (08:18)
[2018-06-13] MEDS: Multivit, Therapeutic 1 TAB PO SCH (08:18)
[2018-06-13] MEDS: Potassium Chloride 10 MEQ TAB PO SCH (08:18)
[2018-06-13] MEDS: Valsartan 80 MG TAB PO SCH (08:19)
[2018-06-13] MEDS: Sodium Chloride 0.9% 1,000 ML IV SCH ×2 (08:20→20:54)
--- NOTE | 2018-06-13 08:40 | OP ---
DATE OF PROCEDURE: 06/13/2018 PREOPERATIVE DIAGNOSIS: Gangrene toes of left foot with peripheral arterial disease. PROCEDURE: Abdominal aortogram, iliofemoral runoff bilaterally and then left lower extremity angiogr aphy. SURGEON: Mandeep Delgado M.D. ANESTHESIA: 1% lidocaine. CONTRAST: 12. FLUOROSCOPY: 1.9 minutes. PROCEDURE: After adequate prepping and draping, a right common femoral artery was palpated and visua lized with ultrasound. 1% lidocaine was used to infiltrate the skin, following which ultrasound guid ed puncture of the femoral artery was performed. Wire and 5 Chinese dilator and sheath were placed fo llowing which a Contra catheter was advanced and abdominal angiography performed with the iliofemoral runoff. Following this, the Contra catheter was advanced into the left common femoral artery over a wire and runoff of the left leg was obtained. Contra catheter and wire were then removed, following which the sheath was removed and pressure held. FINDINGS: The patient had mild atherosclerotic disease of his aorta, both iliac systems with widely patent vessels. There was no significant stenosis seen at any level from the aorta into both common femoral arteries. On the left leg, the superficial femoral artery was widely patent with mild athero sclerotic changes throughout as was the popliteal artery. Popliteal artery then filled occluded ante rior, posterior, and peroneal arteries on the lower extremity, all of which were small, diffusely dis eased and did not maintain patency to the level of the ankle. It was not felt that there was any intervention that could be offered this gentleman either percutane ously or surgically to improve his arterial circulation and he ultimately will probably require a low er extremity amputation on the left. It should be noted that the flow was very sluggish with all inj ections and a cardiac echo will be ordered to assess left ventricular systolic function.
--- NOTE | 2018-06-13 11:47 | PDOC.PN ---
- Subjective Encounter Start Date: 06/13/18 Encounter Start Time: 09:50 Patient seen and examined. No new complaints. No overnight events he has inoperable PVD as per angiography - Objective Resuscitation Status: Resuscitation Status FULL:Full Resuscitation MAR Reviewed: Yes Vital Signs & Weight: Vital Signs (12 hours) Temp Pulse Resp BP Pulse Ox 06/13/18 11:34 98.0 F 69 20 124/72 99 06/13/18 07:00 98.1 F 76 16 120/74 98 Weight Admit Weight 145 lb 4 oz Weight 145 lb 4 oz I&O: 06/12/18 06/13/18 06/14/18 06:59 06:59 06:59 Intake Total 1641 1900 Balance 1641 1900 Result Diagrams: 06/11/18 07:54 06/11/18 07:54 Phys Exam - Physical Examination Constitutional: NAD HEENT: PERRLA, moist MMs, sclera anicteric Neck: no JVD, supple Respiratory: no wheezing, no rales, no rhonchi Cardiovascular: RRR, no significant murmur, no rub Gastrointestinal: soft, non-tender, no distention, positive bowel sounds Musculoskeletal: no edema gangrene toe Neurological: non-focal, normal sensation, moves all 4 limbs Psychiatric: normal affect, A&O x 3 Skin: no rash, normal turgor Dx/Plan (1) Gangrene of toe of left foot Code(s): I96 - GANGRENE, NOT ELSEWHERE CLASSIFIED Status: Acute (2) Hypokalemia Code(s): E87.6 - HYPOKALEMIA Status: Acute (3) Leucopenia Code(s): D72.819 - DECREASED WHITE BLOOD CELL COUNT, UNSPECIFIED Status: Acute (4) Anemia, normocytic normochromic Code(s): D64.9 - ANEMIA, UNSPECIFIED Status: Chronic (5) CAD (coronary artery disease) Code(s): I25.10 - ATHSCL HEART DISEASE OF [place] CORONARY ARTERY W/O ANG PCTRS Status: Chronic (6) Chronic systolic heart failure, ACC/AHA stage C Code(s): I50.22 - CHRONIC SYSTOLIC (CONGESTIVE) HEART FAILURE Status: Chronic (7) Dyslipidemia Code(s): E78.5 - HYPERLIPIDEMIA, UNSPECIFIED Status: Chronic (8) GERD (gastroesophageal reflux disease) Code(s): K21.9 - GASTRO-ESOPHAGEAL REFLUX DISEASE WITHOUT ESOPHAGITIS Status: Chronic (9) H/O prostate cancer Code(s): Z85.46 - PERSONAL HISTORY OF MALIGNANT NEOPLASM OF PROSTATE Status: Chronic (10) Protein-calorie malnutrition, moderate Code(s): E44.0 - MODERATE PROTEIN-CALORIE MALNUTRITION Status: Chronic (11) Tobacco abuse Code(s): Z72.0 - TOBACCO USE Status: Chronic (12) Carotid stenosis Code(s): I65.29 - OCCLUSION AND STENOSIS OF UNSPECIFIED CAROTID ARTERY Status : Chronic (13) PAD (peripheral artery disease) Code(s): I73.9 - PERIPHERAL VASCULAR DISEASE, UNSPECIFIED Status: Chronic - Plan cont current plan of care, continue antibiotics, PT/OT, social media intern * he has inoprable PAD, so only option is left BKA, toe ampuation will not heal wound * he only needs pain control, local wound care * antibiotics will be not necessary and will stop tomorrow * as he had very less flow with angiography, so we are doing echo for EF * today will do CT angio neck * will need placement to SNU * medication reviewed as below * symptomatic treatment. Review of Systems - Review of Systems Eyes: negative: Pain, Vision Change, Conjunctivae Inflammation, Eyelid Inflammation, Redness, Other ENT: negative: Ear Pain, Ear Discharge, Nose Pain, Nose Discharge, Nose Congestion, Mouth Pain, Mouth Swelling, Throat Pain, Throat Swelling, Other Respiratory: negative: Cough, Dry, Shortness of Breath, Hemoptysis, SOB with Excertion, Pleuritic Pain, Sputum, Wheezing Cardiovascular: negative: chest pain, palpitations, orthopnea, paroxysmal nocturnal dyspnea, edema, light headedness, other Gastrointestinal: negative: Nausea, Vomiting, Abdominal Pain, Diarrhea, Constipation, Melena, Hematochezia, Other Genitourinary: negative: Dysuria, Frequency, Incontinence, Hematuria, Retention , Other Musculoskeletal: Leg Pain, Foot Pain. negative: Neck Pain, Shoulder Pain, Arm Pain, Back Pain, Hand Pain, Other - Medications/Allergies Allergies/Adverse Reactions: Allergies Allergy/AdvReac Type Severity Reaction Status Date / Time No Known Drug Allergies Allergy Verified 06/09/18 04:17 Medications: Current Medications Acetaminophen (Tylenol) 650 mg PO Q4H PRN PRN Reason: Headache/Fever or Pain Hydrocodone Bitart/Acetaminophen ([place] 10/325) 1 tab PO Q4H PRN PRN Reason: Pain 1-5 Hydrocodone Bitart/Acetaminophen ([place] 10/325) 2 tab PO Q4H PRN PRN Reason: Pain 6-10 Al Hydroxide/Mg Hydroxide (Maalox) 30 ml PO Q6H PRN PRN Reason: Heartburn or Indigestion Artificial Tears (Tears Renewed 15ml Bottle) 0 drop EA EYE PRN PRN PRN Reason: Dry Eyes Aspirin (Aspirin Chewable) 81 mg PO DAILY [facility] Last Admin: 06/13/18 08:18 Dose: 81 mg Atorvastatin Calcium (Lipitor) 20 mg PO HS [facility] Last Admin: 06/12/18 20:50 Dose: 20 mg Bicalutamide (Casodex) 50 mg PO DAILY [facility] Last Admin: 06/13/18 08:18 Dose: 50 mg Clopidogrel Bisulfate (Plavix) 75 mg PO DAILY [facility] Last Admin: 06/13/18 08:18 Dose: 75 mg Enoxaparin Sodium (Lovenox) 40 mg SC 0900 [facility] Last Admin: 06/13/18 08:17 Dose: Not Given Ferrous Gluconate (Fergon) 324 mg PO QAM-WM [facility] Last Admin: 06/13/18 08:18 Dose: 324 mg Furosemide (Lasix) 40 mg PO DAILY-AC [facility] Last Admin: 06/13/18 08:17 Dose: 40 mg Guaifenesin (Robitussin Sf) 200 mg PO Q4H PRN PRN Reason: Cough Hydralazine HCl (Apresoline) 10 mg SLOW IVP Q4H PRN PRN Reason: Systolic BP > 180 Piperacillin Sod/Tazobactam (Sod 3.375 gm/ Sodium Chloride) 100 mls @ 200 mls/ hr IVPB 0400,1000,1600,2200 [facility] Last Admin: 06/13/18 10:48 Dose: 100 mls Vancomycin HCl 1 gm/ Device 200 mls @ 200 mls/hr IVPB 0500,1700 [facility] Last Admin: 06/13/18 05:37 Dose: 200 mls Sodium Chloride (Normal Saline 0.9%) 1,000 mls @ 75 mls/hr IV .[id number] [facility] Last Admin: 06/13/18 08:20 Dose: 1,000 mls Labetalol HCl (Normodyne) 20 mg SLOW IVP Q4H PRN PRN Reason: Systolic BP > 180 Loperamide HCl (Imodium) 2 mg PO PRN PRN PRN Reason: Diarrhea/Loose Stools Loratadine (Claritin) 10 mg PO DAILYPRN PRN PRN Reason: Sinus Symptoms Magnesium Hydroxide (Milk Of Magnesium) 30 ml PO DAILYPRN PRN PRN Reason: Constipation Mineral Oil/White Petrolatum (Eucerin Cream) 0 gm TOP BIDPRN PRN PRN Reason: Dry Skin Miscellaneous Medication (Pharmacy To Dose) 1 each IVPB PRN PRN PRN Reason: Pharmacy to dose Morphine Sulfate (Morphine) 4 mg SLOW IVP Q4H PRN PRN Reason: Pain Last Admin: 06/13/18 05:31 Dose: 4 mg Multivitamins (Theragran) 1 tab PO DAILY [facility] Last Admin: 06/13/18 08:18 Dose: 1 tab Nicotine (Nicoderm Patch) 21 mg TD Q24HR [facility] Last Admin: 06/12/18 16:20 Dose: 21 mg Nitroglycerin (Nitrostat) 0.4 mg SL Q5MIN PRN PRN Reason: Chest Pain Ondansetron HCl (Zofran Odt) 4 mg PO Q6H PRN PRN Reason: Nausea/Vomiting Ondansetron HCl (Zofran) 4 mg IVP Q6H PRN PRN Reason: Nausea/Vomiting Pantoprazole Sodium (Protonix) 40 mg PO DAILY [facility] Last Admin: 06/13/18 08:17 Dose: 40 mg Phenol (Chloraseptic [place] 180 Ml Bot) 0 ml PO PRN PRN PRN Reason: Sore Throat Potassium Chloride (Klor-Con 10) 10 meq PO QAM-WM [facility] Last Admin: 06/13/18 08:18 Dose: 10 meq Saccharomyces Boulardii (Florastor) 250 mg PO DAILY [facility] Last Admin: 06/13/18 08:17 Dose: 250 mg Senna (Senokot) 2 tab PO HSPRN PRN PRN Reason: Constipation Sodium Chloride ([place] Nasal [place] 0.65%) 0 ml EA NARE QIDPRN PRN PRN Reason: Nasal Congestion Valsartan (Diovan) 80 mg PO DAILY [facility] Last Admin: 06/13/18 08:19 Dose: 80 mg Zolpidem Tartrate (Ambien) 5 mg PO HSPRN PRN PRN Reason: Insomnia
[2018-06-13] MEDS: Nicotine 21 MG PATCH TD SCH (16:45)
[2018-06-13 17:44] LABS: Vancomycin, Trough 15.8 ug/mL
--- NOTE | 2018-06-13 17:56 | CT ---
CTA OF THE NECK UTILIZING IV CONTRAST AND 3D REFORMATTED IMAGING: Date: 06/13/18 INDICATION: Abnormal carotid ultrasound. COMPARISON: Carotid duplex ultrasound dated 06/10/18. FINDINGS: There is fusiform aneurysmal dilatation of the aortic arch measuring 4.4 cm. There is a penetrating a theromatous ulcer, posterior to the fusiform aneurysm of the aortic arch, involving the distal aortic arch, on image 30 of series 2 measuring 1.0 cm in size. Ascending aorta at the level of the right ma in pulmonary artery measures 4.3 cm. The descending thoracic aorta at the level of the right main pul monary artery measures 2.9 cm. The right brachiocephalic artery is widely patent. The right common carotid artery is widely patent. The right internal carotid artery along its cervical course appears patent. There are multifocal area s of moderate narrowing involving the right petrous, precavernous, cavernous segments of the right IC A. Left common carotid artery is widely patent. The bifurcation is patent. Cervical course of the left I CA is patent. The petrous, precavernous, and cavernous segments are patent. There moderate calcificat ions involving the cavernous segment of the left ICA. The right vertebral artery is widely patent throughout its course and is dominant. The left vertebral artery is slightly diminutive but appears patent throughout its visualized course and actually origi nates from the aortic arch. The left subclavian artery is widely patent. Right subclavian artery is widely patent. There is some subsegmental volume loss within the right upper lobe. There are prominent osteoblastic lesions involving C7, T1, T2, T4, T5, and T6 vertebral lesions consi stent with osseous metastatic disease. There is some suspected debris seen within the right mainstem bronchus. IMPRESSION: 1. 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 2. Small, penetrating atheromatous ulcer, seen along the anterior aspect of the distal aortic arch m easuring up to 1.0 cm. 3. Multifocal areas of moderate stenosis involving the right petrous, precavernous, and cavernous se gment of the right ICA likely inducing the low systolic waveform seen involving the right ICA on the comparison examination of 06/10/18. No additional hemodynamically significant stenosis is evident. 4. Mild ectasia of the ascending aorta. 5. Mild suspected debris within the right mainstem bronchus. 6. Diffuse osteoblastic metastatic disease. Findings called to Dr. Delgado at 1542 hours on 06/13/18. CODE CR. POS: [facility]
[2018-06-13] MEDS ORDERED: Iopamidol 370 76% 100 ML VIAL ONE (19:23)
[2018-06-13] MEDS: Atorvastatin Calcium 20 MG TAB PO SCH (20:54)
[2018-06-14] MEDS: Morphine 4 MG/ML VIAL SLOW IVP PRN ×3 (02:29→16:58)
[2018-06-14] MEDS: Sodium Chloride 0.9% 1,000 ML IV SCH (02:30)
[2018-06-14] MEDS: Piperacillin/Tazobactam 3.375 GM in Sodium Chloride 0.9% 100 ML IVPB SCH (04:27)
[2018-06-14] MEDS: Vancomycin HCl 1 GM in Premix Bag 1 BAG IVPB SCH (05:27)
[2018-06-14 05:47] LABS: Anion Gap 13 mmol/L (10-20); BUN (Urea Nitrogen) 12 mg/dL (8.4-25.7); CRP (Inflammatory) 6.47 mg/dL (= or < 0.5); Calc. Creatinine Clearance 100 mL/min (70-130); Calcium 9.2 mg/dL (7.8-10.44); Carbon Dioxide 24 mmol/L (23-31); Chloride 105 mmol/L (98-107); Estimated GFR-MDRD Greater than 90; Glucose 98 mg/dL (83-110); Potassium 3.3 mmol/L (3.5-5.1); Sodium 139 mmol/L (136-145)
[2018-06-14 06:26] LABS: Band 11 % (5-11); Eosinophils 1 % (0-10); Hemoglobin 8.2 g/dL (14.0-18.0); Lymphocytes 38 % (21-51); MDiff Complete? YES; Mean Corpuscular HGB CONC 31.8 g/dL (32.0-36.0); Mean Corpuscular Hemoglobin 27.3 pg (27.0-31.0); Mean Corpuscular Volume 85.9 fL (78.0-98.0); Mean Platelet Volume 8.5 fL (7.4-10.4); Monocytes 5 % (0-10); Neutrophil 45 % (42-75); Platelet Count 155 thou/uL (130-400); RBC Distribution Width 15.9 % (11.5-14.5)
[2018-06-14] MEDS: Furosemide 40 MG TAB PO SCH (08:46)
[2018-06-14] MEDS: Ferrous Gluconate 324 MG TAB PO SCH (08:46)
[2018-06-14] MEDS: Potassium Chloride 10 MEQ TAB PO SCH (08:46)
[2018-06-14] MEDS: Saccharomyces boulardii 250 MG CAP PO SCH (08:46)
[2018-06-14] MEDS: Multivit, Therapeutic 1 TAB PO SCH (08:46)
[2018-06-14] MEDS: Clopidogrel Bisulfate 75 MG TAB PO SCH (08:46)
[2018-06-14] MEDS: Amoxicillin/Potassium Clav 500 MG TAB PO SCH ×2 (08:46→20:19)
[2018-06-14] MEDS: Bicalutamide 50 MG TAB PO SCH (08:48)
[2018-06-14] MEDS: Valsartan 80 MG TAB PO SCH (08:49)
[2018-06-14] MEDS: Enoxaparin Sodium 40 MG/0.4 ML SYRINGE SC SCH (08:50)
--- NOTE | 2018-06-14 09:36 | PDOC.PN ---
- Subjective Encounter Start Date: 06/14/18 Encounter Start Time: 09:00 pt has metastatic prostate cancer and he is following oncology and urology in [place], he wants time today to think about BKA - Objective Resuscitation Status: Resuscitation Status FULL:Full Resuscitation MAR Reviewed: Yes Vital Signs & Weight: Vital Signs (12 hours) Temp Pulse Resp BP Pulse Ox 06/14/18 07:13 98.0 F 71 22 H 135/73 100 Weight Admit Weight 145 lb 4 oz Weight 145 lb 4 oz I&O: 06/13/18 06/14/18 06/15/18 06:59 06:59 06:59 Intake Total 1900 2960 Output Total 3 Balance 1900 2960 -3 Result Diagrams: 06/14/18 03:58 06/14/18 03:58 Radiology Reviewed by me: Yes (CT angiography noted) Phys Exam - Physical Examination Constitutional: NAD HEENT: PERRLA, moist MMs, sclera anicteric Neck: no JVD, supple Respiratory: no wheezing, no rales, no rhonchi redcued air entry Cardiovascular: RRR, no significant murmur, no rub Gastrointestinal: soft, non-tender, no distention, positive bowel sounds Musculoskeletal: no edema, pulses present toe gangrene on left side Neurological: non-focal, normal sensation Lymphatic: no nodes Psychiatric: normal affect, A&O x 3 Skin: no rash, normal turgor Dx/Plan (1) Gangrene of toe of left foot Code(s): I96 - GANGRENE, NOT ELSEWHERE CLASSIFIED Status: Acute Comment: dry gangrene due to pad (2) Hypokalemia Code(s): E87.6 - HYPOKALEMIA Status: Acute (3) Leucopenia Code(s): D72.819 - DECREASED WHITE BLOOD CELL COUNT, UNSPECIFIED Status: Acute (4) Anemia, normocytic normochromic Code(s): D64.9 - ANEMIA, UNSPECIFIED Status: Chronic (5) CAD (coronary artery disease) Code(s): I25.10 - ATHSCL HEART DISEASE OF [place] CORONARY ARTERY W/O ANG PCTRS Status: Chronic (6) Chronic systolic heart failure, ACC/AHA stage C Code(s): I50.22 - CHRONIC SYSTOLIC (CONGESTIVE) HEART FAILURE Status: Chronic (7) Dyslipidemia Code(s): E78.5 - HYPERLIPIDEMIA, UNSPECIFIED Status: Chronic (8) GERD (gastroesophageal reflux disease) Code(s): K21.9 - GASTRO-ESOPHAGEAL REFLUX DISEASE WITHOUT ESOPHAGITIS Status: Chronic (9) H/O prostate cancer Code(s): Z85.46 - PERSONAL HISTORY OF MALIGNANT NEOPLASM OF PROSTATE Status: Chronic Comment: with metastasis (10) Protein-calorie malnutrition, moderate Code(s): E44.0 - MODERATE PROTEIN-CALORIE MALNUTRITION Status: Chronic (11) Tobacco abuse Code(s): Z72.0 - TOBACCO USE Status: Chronic (12) Carotid stenosis Code(s): I65.29 - OCCLUSION AND STENOSIS OF UNSPECIFIED CAROTID ARTERY Status : Chronic (13) PAD (peripheral artery disease) Code(s): I73.9 - PERIPHERAL VASCULAR DISEASE, UNSPECIFIED Status: Chronic (14) Metastatic disease Code(s): C79.9 - SECONDARY MALIGNANT NEOPLASM OF UNSPECIFIED SITE Status: Acute (15) Aneurysm of aortic arch Code(s): I71.2 - THORACIC AORTIC ANEURYSM, WITHOUT RUPTURE Status: Chronic (16) Atherosclerosis of aortic arch Code(s): I70.0 - ATHEROSCLEROSIS OF AORTA Status: Chronic - Plan cont current plan of care, continue antibiotics, PT/OT, social service liaison * by tomorrow pt will make his final decision regarding BKA * if he agree for BKA, then it will be done based on surgeon's schedule * after that he will need wound care and probable rehab * he does not want BKA, then no point of doing toe amputation due to vascular problem as it will not heal, in that case will consider dc to home tomorrow as he does not want to go to snu * medication reviewed as below * symptomatic treatment * today will change to oral augmentin and doxy * replace potassium * will add duoneb to improve his cough. Review of Systems - Review of Systems Constitutional: weakness. negative: fever, chills, sweats, malaise, other Eyes: negative: Pain, Vision Change, Conjunctivae Inflammation, Eyelid Inflammation, Redness, Other Respiratory: Cough, SOB with Excertion. negative: Dry, Shortness of Breath, Hemoptysis, Pleuritic Pain, Sputum, Wheezing Cardiovascular: negative: chest pain, palpitations, orthopnea, paroxysmal nocturnal dyspnea, edema, light headedness, other Gastrointestinal: negative: Nausea, Vomiting, Abdominal Pain, Diarrhea, Constipation, Melena, Hematochezia, Other Genitourinary: negative: Dysuria, Frequency, Incontinence, Hematuria, Retention , Other Musculoskeletal: Foot Pain. negative: Neck Pain, Shoulder Pain, Arm Pain, Back Pain, Hand Pain, Leg Pain, Other Skin: negative: Rash, Lesions, [place], Bruising, Other - Medications/Allergies Allergies/Adverse Reactions: Allergies Allergy/AdvReac Type Severity Reaction Status Date / Time No Known Drug Allergies Allergy Verified 06/09/18 04:17 Medications: Current Medications Acetaminophen (Tylenol) 650 mg PO Q4H PRN PRN Reason: Headache/Fever or Pain Hydrocodone Bitart/Acetaminophen ([place] 10/325) 1 tab PO Q4H PRN PRN Reason: Pain 1-5 Hydrocodone Bitart/Acetaminophen ([place] 10/325) 2 tab PO Q4H PRN PRN Reason: Pain 6-10 Al Hydroxide/Mg Hydroxide (Maalox) 30 ml PO Q6H PRN PRN Reason: Heartburn or Indigestion Amoxicillin/Clavulanate Potassium (Augmentin) 500 mg PO Q12HR [facility] Last Admin: 06/14/18 08:46 Dose: 500 mg Artificial Tears (Tears Renewed 15ml Bottle) 0 drop EA EYE PRN PRN PRN Reason: Dry Eyes Aspirin (Aspirin Chewable) 81 mg PO DAILY [facility] Last Admin: 06/14/18 08:46 Dose: 81 mg Atorvastatin Calcium (Lipitor) 20 mg PO HS [facility] Last Admin: 06/13/18 20:54 Dose: 20 mg Bicalutamide (Casodex) 50 mg PO DAILY [facility] Last Admin: 06/14/18 08:48 Dose: 50 mg Clopidogrel Bisulfate (Plavix) 75 mg PO DAILY [facility] Last Admin: 06/14/18 08:46 Dose: 75 mg Doxycycline Hyclate (Vibramycin) 100 mg PO BID [facility] Enoxaparin Sodium (Lovenox) 40 mg SC 0900 [facility] Last Admin: 06/14/18 08:50 Dose: 40 mg Ferrous Gluconate (Fergon) 324 mg PO QAM-WM [facility] Last Admin: 06/14/18 08:46 Dose: 324 mg Furosemide (Lasix) 40 mg PO DAILY-AC [facility] Last Admin: 06/14/18 08:46 Dose: 40 mg Guaifenesin (Robitussin Sf) 200 mg PO Q4H PRN PRN Reason: Cough Hydralazine HCl (Apresoline) 10 mg SLOW IVP Q4H PRN PRN Reason: Systolic BP > 180 Labetalol HCl (Normodyne) 20 mg SLOW IVP Q4H PRN PRN Reason: Systolic BP > 180 Loperamide HCl (Imodium) 2 mg PO PRN PRN PRN Reason: Diarrhea/Loose Stools Loratadine (Claritin) 10 mg PO DAILYPRN PRN PRN Reason: Sinus Symptoms Magnesium Hydroxide (Milk Of Magnesium) 30 ml PO DAILYPRN PRN PRN Reason: Constipation Mineral Oil/White Petrolatum (Eucerin Cream) 0 gm TOP BIDPRN PRN PRN Reason: Dry Skin Morphine Sulfate (Morphine) 4 mg SLOW IVP Q4H PRN PRN Reason: Pain Last Admin: 06/14/18 09:21 Dose: 4 mg Multivitamins (Theragran) 1 tab PO DAILY [facility] Last Admin: 06/14/18 08:46 Dose: 1 tab Nicotine (Nicoderm Patch) 21 mg TD Q24HR [facility] Last Admin: 06/13/18 16:45 Dose: 21 mg Nitroglycerin (Nitrostat) 0.4 mg SL Q5MIN PRN PRN Reason: Chest Pain Ondansetron HCl (Zofran Odt) 4 mg PO Q6H PRN PRN Reason: Nausea/Vomiting Ondansetron HCl (Zofran) 4 mg IVP Q6H PRN PRN Reason: Nausea/Vomiting Pantoprazole Sodium (Protonix) 40 mg PO DAILY [facility] Last Admin: 06/14/18 08:46 Dose: 40 mg Phenol (Chloraseptic [place] 180 Ml Bot) 0 ml PO PRN PRN PRN Reason: Sore Throat Potassium Chloride (Klor-Con 10) 10 meq PO QAM-WM [facility] Last Admin: 06/14/18 08:46 Dose: 10 meq Saccharomyces Boulardii (Florastor) 250 mg PO DAILY [facility] Last Admin: 06/14/18 08:46 Dose: 250 mg Senna (Senokot) 2 tab PO HSPRN PRN PRN Reason: Constipation Sodium Chloride ([place] Nasal [place] 0.65%) 0 ml EA NARE QIDPRN PRN PRN Reason: Nasal Congestion Sodium Chloride (Flush - Normal Saline) 10 ml IVF Q12HR [facility] Last Admin: 06/14/18 08:51 Dose: 10 ml Sodium Chloride (Flush - Normal Saline) 10 ml IVF PRN PRN PRN Reason: Saline Flush Valsartan (Diovan) 80 mg PO DAILY [facility] Last Admin: 06/14/18 08:49 Dose: 80 mg Zolpidem Tartrate (Ambien) 5 mg PO HSPRN PRN PRN Reason: Insomnia
[2018-06-14] MEDS: Doxycycline 100 MG CAP PO SCH ×2 (10:32→20:19)
[2018-06-14] MEDS: Nicotine 21 MG PATCH TD SCH (16:46)
[2018-06-14] MEDS: HYDROcodone/Acetaminophen 10/325 mg Tablet PO PRN (20:19)
[2018-06-14] MEDS: Atorvastatin Calcium 20 MG TAB PO SCH (20:19)
[2018-06-15] MEDS: Morphine 4 MG/ML VIAL SLOW IVP PRN ×4 (00:37→14:23)
[2018-06-15] MEDS: Bicalutamide 50 MG TAB PO SCH (08:01)
[2018-06-15] MEDS: Saccharomyces boulardii 250 MG CAP PO SCH (08:02)
[2018-06-15] MEDS: Doxycycline 100 MG CAP PO SCH ×2 (08:02→21:07)
[2018-06-15] MEDS: Furosemide 40 MG TAB PO SCH (08:02)
[2018-06-15] MEDS: Potassium Chloride 10 MEQ TAB PO SCH (08:02)
[2018-06-15] MEDS: Clopidogrel Bisulfate 75 MG TAB PO SCH (08:02)
[2018-06-15] MEDS: Amoxicillin/Potassium Clav 500 MG TAB PO SCH ×2 (08:03→21:07)
[2018-06-15] MEDS: Enoxaparin Sodium 40 MG/0.4 ML SYRINGE SC SCH (08:03)
[2018-06-15] MEDS: Multivit, Therapeutic 1 TAB PO SCH (08:03)
[2018-06-15] MEDS: Ferrous Gluconate 324 MG TAB PO SCH (08:03)
[2018-06-15] MEDS: Valsartan 80 MG TAB PO SCH (08:03)
--- NOTE | 2018-06-15 11:34 | PDOC.PN ---
- Subjective Encounter Start Date: 06/15/18 Encounter Start Time: 10:00 PAtient is seen today, discussed with patient and MPOA his Daughter in law. Family wanted to know if they can discuss with Oncology too, And agreed to proceed for BKA surgery at this time. - Objective Resuscitation Status: Resuscitation Status FULL:Full Resuscitation MAR Reviewed: Yes Vital Signs & Weight: Vital Signs (12 hours) Temp Pulse Resp BP Pulse Ox 06/15/18 09:05 72 15 100 06/15/18 08:00 98.0 F 72 15 100 06/15/18 07:46 98.0 F 72 20 152/79 H 100 06/15/18 00:04 73 16 97 Weight Admit Weight 145 lb 4 oz Weight 145 lb 4 oz I&O: 06/14/18 06/15/18 06/16/18 06:59 06:59 06:59 Intake Total 2960 480 Output Total 3 Balance 2960 477 Result Diagrams: 06/14/18 03:58 06/14/18 03:58 Radiology Reviewed by me: Yes Phys Exam - Physical Examination HEENT: PERRLA, moist MMs Neck: no nodes, no JVD Respiratory: no wheezing, no rales Cardiovascular: RRR, no significant murmur Gastrointestinal: soft, non-tender Musculoskeletal: no edema, pulses present Dx/Plan (1) Gangrene of toe of left foot Code(s): I96 - GANGRENE, NOT ELSEWHERE CLASSIFIED Status: Acute Comment: dry gangrene due to PAD, continue with Surgical rcommedation for BKA, stbale WBC on Abx. will consult ID (2) Metastatic disease Code(s): C79.9 - SECONDARY MALIGNANT NEOPLASM OF UNSPECIFIED SITE Status: Acute Comment: Family requesting oncology to see hi,m, pts urology is from [facility]. (3) Anemia, normocytic normochromic Code(s): D64.9 - ANEMIA, UNSPECIFIED Status: Chronic Comment: Likely from metastitc to Bone, with marrow suppresision,. (4) Aneurysm of aortic arch Code(s): I71.2 - THORACIC AORTIC ANEURYSM, WITHOUT RUPTURE Status: Chronic Comment: Stbale at 4.4, will need repeat CT in 6-8 months. follow up with CT surgery. (5) Atherosclerosis of aortic arch Code(s): I70.0 - ATHEROSCLEROSIS OF AORTA Status: Chronic Comment: Will continue with medical amangement of Cholesteral amagement (6) Carotid stenosis Code(s): I65.29 - OCCLUSION AND STENOSIS OF UNSPECIFIED CAROTID ARTERY Status : Chronic Comment: Insignificant on CTA. Will continue with medical managaement. (7) Chronic systolic heart failure, ACC/AHA stage C Code(s): I50.22 - CHRONIC SYSTOLIC (CONGESTIVE) HEART FAILURE Status: Chronic (8) PAD (peripheral artery disease) Code(s): I73.9 - PERIPHERAL VASCULAR DISEASE, UNSPECIFIED Status: Chronic Comment: Plan as Above. Aspirin following surgery. (9) Protein-calorie malnutrition, moderate Code(s): E44.0 - MODERATE PROTEIN-CALORIE MALNUTRITION Status: Chronic Comment: Will follow with Diatary recommedations Post suregry for better wound healing - Plan cont current plan of care, plan discussed w/ family, continue antibiotics, PT/OT , social work nurse, respiratory therapy, incentive spirometry, DVT proph w/ lovenox * . Review of Systems - Review of Systems Constitutional: weakness Eyes: negative: Pain, Vision Change, Conjunctivae Inflammation, Eyelid Inflammation, Redness, Other ENT: negative: Ear Pain, Ear Discharge, Nose Pain, Nose Discharge, Nose Congestion, Mouth Pain, Mouth Swelling, Throat Pain, Throat Swelling, Other Respiratory: negative: Cough, Dry, Shortness of Breath, Hemoptysis, SOB with Excertion, Pleuritic Pain, Sputum, Wheezing Cardiovascular: negative: chest pain, palpitations, orthopnea, paroxysmal nocturnal dyspnea, edema, light headedness, other Gastrointestinal: negative: Nausea, Vomiting, Abdominal Pain, Diarrhea, Constipation, Melena, Hematochezia, Other Genitourinary: negative: Dysuria, Frequency, Incontinence, Hematuria, Retention , Other Musculoskeletal: Leg Pain, Foot Pain Skin: negative: Rash, Lesions, [place], Bruising, Other Neurological: negative: Weakness, Numbness, Incoordination, Change in Speech, Confusion, Seizures, Other - Medications/Allergies Allergies/Adverse Reactions: Allergies Allergy/AdvReac Type Severity Reaction Status Date / Time No Known Drug Allergies Allergy Verified 06/09/18 04:17 Medications: Current Medications Acetaminophen (Tylenol) 650 mg PO Q4H PRN PRN Reason: Headache/Fever or Pain Hydrocodone Bitart/Acetaminophen ([place] 10/325) 1 tab PO Q4H PRN PRN Reason: Pain 1-5 Hydrocodone Bitart/Acetaminophen ([place] 10/325) 2 tab PO Q4H PRN PRN Reason: Pain 6-10 Last Admin: 06/14/18 20:19 Dose: 2 tab Al Hydroxide/Mg Hydroxide (Maalox) 30 ml PO Q6H PRN PRN Reason: Heartburn or Indigestion Albuterol/Ipratropium (Duoneb) 3 ml NEB [id number] [facility] Last Admin: 06/15/18 09:05 Dose: 3 ml Amoxicillin/Clavulanate Potassium (Augmentin) 500 mg PO Q12HR [facility] Last Admin: 06/15/18 08:03 Dose: 500 mg Artificial Tears (Tears Renewed 15ml Bottle) 0 drop EA EYE PRN PRN PRN Reason: Dry Eyes Aspirin (Aspirin Chewable) 81 mg PO DAILY [facility] Last Admin: 06/15/18 08:03 Dose: 81 mg Atorvastatin Calcium (Lipitor) 20 mg PO HS [facility] Last Admin: 06/14/18 20:19 Dose: 20 mg Bicalutamide (Casodex) 50 mg PO DAILY [facility] Last Admin: 06/15/18 08:01 Dose: 50 mg Clopidogrel Bisulfate (Plavix) 75 mg PO DAILY [facility] Last Admin: 06/15/18 08:02 Dose: 75 mg Doxycycline Hyclate (Vibramycin) 100 mg PO BID [facility] Last Admin: 06/15/18 08:02 Dose: 100 mg Enoxaparin Sodium (Lovenox) 40 mg SC 0900 [facility] Last Admin: 06/15/18 08:03 Dose: 40 mg Ferrous Gluconate (Fergon) 324 mg PO QAM-WM [facility] Last Admin: 06/15/18 08:03 Dose: 324 mg Furosemide (Lasix) 40 mg PO DAILY-AC [facility] Last Admin: 06/15/18 08:02 Dose: 40 mg Guaifenesin (Robitussin Sf) 200 mg PO Q4H PRN PRN Reason: Cough Hydralazine HCl (Apresoline) 10 mg SLOW IVP Q4H PRN PRN Reason: Systolic BP > 180 Labetalol HCl (Normodyne) 20 mg SLOW IVP Q4H PRN PRN Reason: Systolic BP > 180 Loperamide HCl (Imodium) 2 mg PO PRN PRN PRN Reason: Diarrhea/Loose Stools Loratadine (Claritin) 10 mg PO DAILYPRN PRN PRN Reason: Sinus Symptoms Magnesium Hydroxide (Milk Of Magnesium) 30 ml PO DAILYPRN PRN PRN Reason: Constipation Mineral Oil/White Petrolatum (Eucerin Cream) 0 gm TOP BIDPRN PRN PRN Reason: Dry Skin Morphine Sulfate (Morphine) 4 mg SLOW IVP Q4H PRN PRN Reason: Pain Last Admin: 06/15/18 10:40 Dose: 4 mg Multivitamins (Theragran) 1 tab PO DAILY [facility] Last Admin: 06/15/18 08:03 Dose: 1 tab Nicotine (Nicoderm Patch) 21 mg TD Q24HR [facility] Last Admin: 06/14/18 16:46 Dose: 21 mg Nitroglycerin (Nitrostat) 0.4 mg SL Q5MIN PRN PRN Reason: Chest Pain Ondansetron HCl (Zofran Odt) 4 mg PO Q6H PRN PRN Reason: Nausea/Vomiting Ondansetron HCl (Zofran) 4 mg IVP Q6H PRN PRN Reason: Nausea/Vomiting Pantoprazole Sodium (Protonix) 40 mg PO DAILY [facility] Last Admin: 06/15/18 08:02 Dose: 40 mg Phenol (Chloraseptic [place] 180 Ml Bot) 0 ml PO PRN PRN PRN Reason: Sore Throat Potassium Chloride (Klor-Con 10) 10 meq PO QAM-WM [facility] Last Admin: 06/15/18 08:02 Dose: 10 meq Saccharomyces Boulardii (Florastor) 250 mg PO DAILY [facility] Last Admin: 06/15/18 08:02 Dose: 250 mg Senna (Senokot) 2 tab PO HSPRN PRN PRN Reason: Constipation Sodium Chloride ([place] Nasal [place] 0.65%) 0 ml EA NARE QIDPRN PRN PRN Reason: Nasal Congestion Sodium Chloride (Flush - Normal Saline) 10 ml IVF Q12HR [facility] Last Admin: 06/15/18 08:04 Dose: 10 ml Sodium Chloride (Flush - Normal Saline) 10 ml IVF PRN PRN PRN Reason: Saline Flush Valsartan (Diovan) 80 mg PO DAILY [facility] Last Admin: 06/15/18 08:03 Dose: 80 mg Zolpidem Tartrate (Ambien) 5 mg PO HSPRN PRN PRN Reason: Insomnia
[2018-06-15] MEDS: HYDROcodone/Acetaminophen 10/325 mg Tablet PO PRN ×2 (13:07→21:09)
--- NOTE | 2018-06-15 14:14 | ULT ---
LOWER EXTREMITY ARTERIAL EVALUATION: Date: Lower extremity arterial evaluation was performed with Doppler waveform analysis and segmental limb pressures. Right lower extremity demonstrates relatively well preserved femoral waveform with slightly diminishe d waveforms at the popliteal and posterior tibial level. Ankle-arm index calculates 0.99 and toe-bra chial index was not calculated. Left lower extremity demonstrates a fairly well preserved femoral waveform with diminished waveform a t the popliteal and posterior tibial level, and an ankle-arm index of 0.83. This study is suggestive of peripheral vascular disease and could be consistent with a history of cla udication from a vascular standpoint.
[2018-06-15] MEDS: Nicotine 21 MG PATCH TD SCH (14:24)
[2018-06-15] MEDS ORDERED: ISOVUE-370 76%-LOCM 1 ML ONE (14:37)
--- NOTE | 2018-06-15 15:16 | CON ---
DATE OF CONSULTATION: 06/15/2018 REASON FOR CONSULTATION: Metastatic prostate cancer. HISTORY OF PRESENT ILLNESS: Mr. Rene is a 72-year-old -Swazi male with a history of prostate cancer. He is under the care of Dr. Stevan Xie in [place]. He has been on Casodex for many years. He states he was originally diagnosed in 2010. He presented to the emergency room with complaints of left lower extremity pain. He had a cellulitis and gangrene to his left fourth toe. Dr. Delgado has evaluated him and suggested at some point he will need an amputation. The patient had a CT angiography performed, which showed osteolytic lesions to C7-T1 T2-T4 T5 and T6 consistent with metastatic disease. We were asked to further recommendations regarding possible treatments. The patient has never been to our clinic. He has been under cared for by Dr. Xie again for many years. I do not know what his last PSA is, patient is unable to provide that information to me. He denies any chest pain or shortness of breath. No abdominal discomfort, no urinary complaints. He does complain of pain in his left lower extremity. The patient is a poor historian. History was obtained from review of prior medical record. PAST MEDICAL HISTORY: 1. Prostate cancer. 2. Finger amputations from frostbite. 3. Congestive heart failure. 4. Coronary artery disease. 5. Hypertension. 6. Dyslipidemia. 7. Tobacco use. PAST SURGICAL HISTORY: 1. Stomach surgery for ulcers. 2. Partial amputation of finger. 3. Cardiac catheterization with stent placement. ALLERGIES: No known drug allergies. FAMILY HISTORY: Noncontributory. SOCIAL HISTORY: He is , lives with his son and [id number]. Smokes about half pack a day. No illicit drug use. HOME MEDICATIONS: 1. Aspirin 81 mg daily. 2. Atorvastatin 20 mg daily. 3. Casodex 50 mg daily. 4. Plavix 75 mg daily. 5. Lasix 40 mg daily. 6. Metoprolol 50 mg daily. 7. Protonix 40 mg daily. 8. Potassium chloride 10 mEq daily. 9. Diovan 80 mg daily. REVIEW OF SYSTEMS: A 10-point review of systems is negative except for noted in HPI. PHYSICAL EXAMINATION: VITAL SIGNS: Temperature is 98.2, pulse is 79, respiratory rate 15, BP is 127/ 81. He is 100% on room air. GENERAL: This is a thin -Swazi male in no acute distress. HEENT: Normocephalic, atraumatic. Pupils equal and reactive to light. NECK: Supple. CARDIOVASCULAR: Regular rate and rhythm. LUNGS: Clear. ABDOMEN: Soft, nontender, bowel sounds are positive. EXTREMITIES: No clubbing, cyanosis or edema. SKIN: No rash. HEMATOLOGIC: No petechia or purpura. NEUROLOGIC: Nonfocal. PSYCHIATRIC: The patient is alert and answers questions appropriately. PERTINENT LABORATORY AND X-RAYS: Current WBCs 3.0, hemoglobin 8.2, hematocrit 25.8, platelet count 155,000. He has 45% neutrophils, 11% bands, 38% lymphocytes. Sodium is 139, potassium 3.3, chloride 105, CO2 is 24, BUN is 12, creatinine 0.63, calcium is 9.2, total bilirubin is 0.2, AST is 15, ALT is 12, alkaline phosphatase is 70, serum total protein is 6.7, albumin 3.3, globulin 3.4. Urine is negative for bacteria. Radiology per HPI. IMPRESSION: Metastatic prostate cancer with bone metastasis. DISCUSSION: The patient has not received chemotherapy in the past. He may be a candidate for oral chemotherapy agent such as Xtandi or Zytiga. He could likely get good control of his cancer with improved survival. I do not think he is a candidate for IV chemo at this time. He will also need Zometa for his bones but should have dental clearance prior to initiating. This information was discussed with the patient. He is hesitant to consider further treatment. I would recommend that he follow up in our clinic in outpatient setting with his family to discuss further. Thank you for the consult. ANA
[2018-06-15] MEDS: Atorvastatin Calcium 20 MG TAB PO SCH (21:07)
--- NOTE | 2018-06-15 22:33 | CON ---
DATE OF CONSULTATION: 06/15/2018 REASON FOR CONSULTATION: Peripheral vascular disease and inflammatory process, left foot. HISTORY OF PRESENT ILLNESS: A 72-year-old with history of coronary artery disease and prostate cance r, who was admitted because of inflammatory process of left fourth toe. Apparently, maggots were see n coming out of the fourth toe ulcer. No fever had been reported. 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 The patient was given broad-spectrum coverage, tetanus vaccine. The patient has completed vascular evaluation and he is not felt to be a candidate for revascularization. Currently, he is awake. No headaches. No sor e throat, odynophagia, dysphagia. No dyspnea or chest pain. No abdominal pain or diarrhea. No lori tourinary symptoms. PAST MEDICAL HISTORY: Frostbite with amputations in fingers; coronary artery disease; CHF; hypertens ion; prostate cancer, metastatic with osteoblastic lesions; chronic smoking; peripheral vascular dise ase. PAST SURGICAL HISTORY: Ulcer in the gastric area with surgical repair, cardiac catheterization, sten ts. SOCIAL HISTORY: Drinks occasionally. He is still smoking daily. Lives in [place] with family. FAMILY HISTORY: Noncontributory. CURRENT MEDICATIONS: Tylenol, [place], Maalox, DuoNeb, Augmentin, aspirin, Plavix. PHYSICAL EXAMINATION: VITAL SIGNS: Essentially normal. O2 sat 100%. GENERAL: Appears in no distress, oriented. SKIN: Shows the area of ulceration, onycholysis of fourth toe, right foot. The toe itself has swell ing and dark discoloration. No lymphadenopathy. HEENT: Right eye with pupil about 1 mm, nonreactive. Mild conjunctival hyperemia there. Intraocula r media are not patent in right side. In left side, the pupillary reactions are normal. Nasal passa ges are patent. Oral cavity with numerous missing teeth. Remainder ones with pronounced decay and g um resorption. NECK: Supple. No jugular vein distention. LUNGS: Symmetric clear breath sounds. HEART: S1, S2 regular rate. No S3 or S4. ABDOMEN: Soft. Not distended or tender. No ascites. No bladder distention. EXTREMITIES: Did not feel any popliteal or dorsalis pedis pulses. Could not evaluate capillary refi ll. Moves extremities on command. NEUROLOGIC: He is oriented, follows commands. LABORATORY DATA: White cell count 3.3 and 3.0, hemoglobin 8.2, MCV 85, platelets 155. INR is 1. So dium 139, creatinine 0.63 with normal liver profile, albumin 3.3. Urinalysis with 0 to 3 wbc's. Fou r sets of negative blood cultures thus far. Echocardiogram: EF 60%-65%, some diastolic dysfunction. CT angio, fusiform aneurysm in aortic arch, multifocal areas of moderate stenosis. This appears to be in the carotid arteries. This is a CTA o f the neck with contrast. There is a lower extremity ultrasound with results suggestive of periphera l vascular disease and then there is the abdominal aortogram, iliofemoral runoff bilaterally, and the n lower extremity angiography. The interpretation was mild atherosclerotic disease. Aortoiliac syst ems widely patent vessels. No stenosis seen at any level from aorta into both common femoral arterie s. Left leg SFA was widely patent with mild changes throughout to the popliteal artery. The poplite al already then filled occluded trifurcation vessels in the left lower extremity, all were small, dif fusely diseased, and not patent to the level of the ankle. ASSESSMENT: Chronic smoking, peripheral vascular disease, metastatic prostate cancer with ulcer and gangrene of fourth toe in right foot. DISCUSSION: The patient is not eligible for any revascularization procedure, and will likely end up with an amputation, probably at the BKA level eventually. The patient has been switched to Augmentin . The option is now would be to resect the involved toe hoping for healing maybe with assistance of hyperbaric treatments or just conservative management. In view of the metastatic prostate cancer, I would favor conservative management with continuation of oral antimicrobial therapy for a few weeks.
[2018-06-16] MEDS: Enoxaparin Sodium 40 MG/0.4 ML SYRINGE SC SCH (09:23)
[2018-06-16] MEDS: Potassium Chloride 10 MEQ TAB PO SCH (09:24)
[2018-06-16] MEDS: Doxycycline 100 MG CAP PO SCH ×2 (09:24→20:03)
[2018-06-16] MEDS: Amoxicillin/Potassium Clav 500 MG TAB PO SCH ×2 (09:24→20:03)
[2018-06-16] MEDS: Saccharomyces boulardii 250 MG CAP PO SCH (09:24)
[2018-06-16] MEDS: Ferrous Gluconate 324 MG TAB PO SCH (09:24)
[2018-06-16] MEDS: HYDROcodone/Acetaminophen 10/325 mg Tablet PO PRN ×3 (09:25→23:37)
[2018-06-16] MEDS: Furosemide 40 MG TAB PO SCH (09:27)
[2018-06-16] MEDS: Multivit, Therapeutic 1 TAB PO SCH (09:27)
[2018-06-16] MEDS: Clopidogrel Bisulfate 75 MG TAB PO SCH (09:27)
[2018-06-16] MEDS: Bicalutamide 50 MG TAB PO SCH (09:27)
[2018-06-16] MEDS: Valsartan 80 MG TAB PO SCH (09:28)
[2018-06-16] MEDS: Morphine 4 MG/ML VIAL SLOW IVP PRN (09:28)
[2018-06-16] MEDS: Nicotine 21 MG PATCH TD SCH (14:37)
--- NOTE | 2018-06-16 15:29 | PDOC.PN ---
- Subjective Encounter Start Date: 06/16/18 Encounter Start Time: 14:00 Patient is seen today, alert and oriented, No distress, plan is to continue with conservative mangeemnbt with partial amputation of the Toe and hyperbarics with Po Abx. - Objective Resuscitation Status: Resuscitation Status FULL:Full Resuscitation MAR Reviewed: Yes Vital Signs & Weight: Vital Signs (12 hours) Temp Pulse Resp BP Pulse Ox 06/16/18 14:41 98.2 F 81 14 115/75 100 06/16/18 10:53 98.1 F 97 18 120/78 100 06/16/18 08:00 98.0 F 107 H 18 98 06/16/18 07:35 98.0 F 107 H 18 177/97 H 100 06/16/18 05:52 85 14 98 Weight Admit Weight 145 lb 4 oz Weight 145 lb I&O: 06/15/18 06/16/18 06/17/18 06:59 06:59 06:59 Intake Total 480 1200 Output Total 3 Balance 477 1200 Result Diagrams: 06/14/18 03:58 06/14/18 03:58 Radiology Reviewed by me: Yes Phys Exam - Physical Examination HEENT: PERRLA, moist MMs Neck: no nodes, no JVD Respiratory: no wheezing, no rales Cardiovascular: RRR, no significant murmur Gastrointestinal: soft, non-tender Musculoskeletal: no edema, pulses present Neurological: non-focal, normal sensation Lymphatic: no nodes Dx/Plan (1) Gangrene of toe of left foot Code(s): I96 - GANGRENE, NOT ELSEWHERE CLASSIFIED Status: Acute Comment: dry gangrene due to PAD, Plan for conservative management per ID, No BKA plan as per today. Will follow ID recommedations. (2) Metastatic disease Code(s): C79.9 - SECONDARY MALIGNANT NEOPLASM OF UNSPECIFIED SITE Status: Acute Comment: Dr. elias to Follow up as outpaitent. (3) Anemia, normocytic normochromic Code(s): D64.9 - ANEMIA, UNSPECIFIED Status: Chronic Comment: Likely from metastitc to Bone, with marrow suppresision,. (4) Aneurysm of aortic arch Code(s): I71.2 - THORACIC AORTIC ANEURYSM, WITHOUT RUPTURE Status: Chronic Comment: Stbale at 4.4, will need repeat CT in 6-8 months. follow up with CT surgery. (5) Atherosclerosis of aortic arch Code(s): I70.0 - ATHEROSCLEROSIS OF AORTA Status: Chronic Comment: Will continue with medical amangement of Cholesteral amagement (6) Carotid stenosis Code(s): I65.29 - OCCLUSION AND STENOSIS OF UNSPECIFIED CAROTID ARTERY Status : Chronic Comment: Insignificant on CTA. Will continue with medical managaement. (7) Chronic systolic heart failure, ACC/AHA stage C Code(s): I50.22 - CHRONIC SYSTOLIC (CONGESTIVE) HEART FAILURE Status: Chronic (8) PAD (peripheral artery disease) Code(s): I73.9 - PERIPHERAL VASCULAR DISEASE, UNSPECIFIED Status: Chronic Comment: Plan as Above. Aspirin following surgery. (9) Protein-calorie malnutrition, moderate Code(s): E44.0 - MODERATE PROTEIN-CALORIE MALNUTRITION Status: Chronic Comment: Will follow with Diatary recommedations Post suregry for better wound healing - Plan cont current plan of care, plan discussed w/ family, continue antibiotics, PT/OT , director of social work, respiratory therapy, incentive spirometry, DVT proph w/ lovenox * . Review of Systems - Review of Systems Eyes: negative: Pain, Vision Change, Conjunctivae Inflammation, Eyelid Inflammation, Redness, Other ENT: negative: Ear Pain, Ear Discharge, Nose Pain, Nose Discharge, Nose Congestion, Mouth Pain, Mouth Swelling, Throat Pain, Throat Swelling, Other Respiratory: negative: Cough, Dry, Shortness of Breath, Hemoptysis, SOB with Excertion, Pleuritic Pain, Sputum, Wheezing Cardiovascular: negative: chest pain, palpitations, orthopnea, paroxysmal nocturnal dyspnea, edema, light headedness, other Gastrointestinal: negative: Nausea, Vomiting, Abdominal Pain, Diarrhea, Constipation, Melena, Hematochezia, Other Musculoskeletal: negative: Neck Pain, Shoulder Pain, Arm Pain, Back Pain, Hand Pain, Leg Pain, Foot Pain, Other - Medications/Allergies Allergies/Adverse Reactions: Allergies Allergy/AdvReac Type Severity Reaction Status Date / Time No Known Drug Allergies Allergy Verified 06/09/18 04:17 Medications: Current Medications Acetaminophen (Tylenol) 650 mg PO Q4H PRN PRN Reason: Headache/Fever or Pain Hydrocodone Bitart/Acetaminophen ([place] 10/325) 1 tab PO Q4H PRN PRN Reason: Pain 1-5 Hydrocodone Bitart/Acetaminophen ([place] 10/325) 2 tab PO Q4H PRN PRN Reason: Pain 6-10 Last Admin: 06/16/18 09:25 Dose: 2 tab Al Hydroxide/Mg Hydroxide (Maalox) 30 ml PO Q6H PRN PRN Reason: Heartburn or Indigestion Albuterol/Ipratropium (Duoneb) 3 ml NEB Q4H PRN PRN Reason: SOB Amoxicillin/Clavulanate Potassium (Augmentin) 500 mg PO Q12HR [facility] Last Admin: 06/16/18 09:24 Dose: 500 mg Artificial Tears (Tears Renewed 15ml Bottle) 0 drop EA EYE PRN PRN PRN Reason: Dry Eyes Aspirin (Aspirin Chewable) 81 mg PO DAILY [facility] Last Admin: 06/16/18 09:26 Dose: 81 mg Atorvastatin Calcium (Lipitor) 20 mg PO HS [facility] Last Admin: 06/15/18 21:07 Dose: 20 mg Bicalutamide (Casodex) 50 mg PO DAILY [facility] Last Admin: 06/16/18 09:27 Dose: 50 mg Clopidogrel Bisulfate (Plavix) 75 mg PO DAILY [facility] Last Admin: 06/16/18 09:27 Dose: 75 mg Doxycycline Hyclate (Vibramycin) 100 mg PO BID [facility] Last Admin: 06/16/18 09:24 Dose: 100 mg Enoxaparin Sodium (Lovenox) 40 mg SC 0900 [facility] Last Admin: 06/16/18 09:23 Dose: 40 mg Ferrous Gluconate (Fergon) 324 mg PO QAM-WM [facility] Last Admin: 06/16/18 09:24 Dose: 324 mg Furosemide (Lasix) 40 mg PO DAILY-AC [facility] Last Admin: 06/16/18 09:27 Dose: 40 mg Guaifenesin (Robitussin Sf) 200 mg PO Q4H PRN PRN Reason: Cough Hydralazine HCl (Apresoline) 10 mg SLOW IVP Q4H PRN PRN Reason: Systolic BP > 180 Labetalol HCl (Normodyne) 20 mg SLOW IVP Q4H PRN PRN Reason: Systolic BP > 180 Loperamide HCl (Imodium) 2 mg PO PRN PRN PRN Reason: Diarrhea/Loose Stools Loratadine (Claritin) 10 mg PO DAILYPRN PRN PRN Reason: Sinus Symptoms Magnesium Hydroxide (Milk Of Magnesium) 30 ml PO DAILYPRN PRN PRN Reason: Constipation Mineral Oil/White Petrolatum (Eucerin Cream) 0 gm TOP BIDPRN PRN PRN Reason: Dry Skin Morphine Sulfate (Morphine) 4 mg SLOW IVP Q4H PRN PRN Reason: Pain Last Admin: 06/16/18 09:28 Dose: 4 mg Multivitamins (Theragran) 1 tab PO DAILY [facility] Last Admin: 06/16/18 09:27 Dose: 1 tab Nicotine (Nicoderm Patch) 21 mg TD Q24HR [facility] Last Admin: 06/16/18 14:37 Dose: 21 mg Nitroglycerin (Nitrostat) 0.4 mg SL Q5MIN PRN PRN Reason: Chest Pain Ondansetron HCl (Zofran Odt) 4 mg PO Q6H PRN PRN Reason: Nausea/Vomiting Ondansetron HCl (Zofran) 4 mg IVP Q6H PRN PRN Reason: Nausea/Vomiting Pantoprazole Sodium (Protonix) 40 mg PO DAILY [facility] Last Admin: 06/16/18 09:27 Dose: 40 mg Phenol (Chloraseptic [place] 180 Ml Bot) 0 ml PO PRN PRN PRN Reason: Sore Throat Potassium Chloride (Klor-Con 10) 10 meq PO QAM-WM [facility] Last Admin: 06/16/18 09:24 Dose: 10 meq Saccharomyces Boulardii (Florastor) 250 mg PO DAILY [facility] Last Admin: 06/16/18 09:24 Dose: 250 mg Senna (Senokot) 2 tab PO HSPRN PRN PRN Reason: Constipation Sodium Chloride ([place] Nasal [place] 0.65%) 0 ml EA NARE QIDPRN PRN PRN Reason: Nasal Congestion Sodium Chloride (Flush - Normal Saline) 10 ml IVF Q12HR [facility] Last Admin: 06/16/18 09:29 Dose: 10 ml Sodium Chloride (Flush - Normal Saline) 10 ml IVF PRN PRN PRN Reason: Saline Flush Valsartan (Diovan) 80 mg PO DAILY [facility] Last Admin: 06/16/18 09:28 Dose: 80 mg Zolpidem Tartrate (Ambien) 5 mg PO HSPRN PRN PRN Reason: Insomnia
[2018-06-16] MEDS: Atorvastatin Calcium 20 MG TAB PO SCH (20:03)
[2018-06-17] MEDS: HYDROcodone/Acetaminophen 10/325 mg Tablet PO PRN ×3 (03:54→19:53)
[2018-06-17] MEDS: Potassium Chloride 10 MEQ TAB PO SCH (08:12)
[2018-06-17] MEDS: Clopidogrel Bisulfate 75 MG TAB PO SCH (08:12)
[2018-06-17] MEDS: Furosemide 40 MG TAB PO SCH (08:13)
[2018-06-17] MEDS: Amoxicillin/Potassium Clav 500 MG TAB PO SCH ×2 (08:13→19:52)
[2018-06-17] MEDS: Doxycycline 100 MG CAP PO SCH ×2 (08:13→19:52)
[2018-06-17] MEDS: Enoxaparin Sodium 40 MG/0.4 ML SYRINGE SC SCH (08:13)
[2018-06-17] MEDS: Multivit, Therapeutic 1 TAB PO SCH (08:13)
[2018-06-17] MEDS: Ferrous Gluconate 324 MG TAB PO SCH (08:13)
[2018-06-17] MEDS: Saccharomyces boulardii 250 MG CAP PO SCH (08:13)
[2018-06-17] MEDS: Bicalutamide 50 MG TAB PO SCH (08:14)
[2018-06-17] MEDS: Valsartan 80 MG TAB PO SCH (08:14)
[2018-06-17] MEDS: Nicotine 21 MG PATCH TD SCH (14:44)
--- NOTE | 2018-06-17 14:54 | PDOC.PN ---
- Subjective Encounter Start Date: 06/17/18 Encounter Start Time: 13:00 Patient is seen today, alert and oriented, Discussed with patient After Discussing with ID, patient is requesting for BKA. - Objective Resuscitation Status: Resuscitation Status FULL:Full Resuscitation MAR Reviewed: Yes Vital Signs & Weight: Vital Signs (12 hours) Temp Pulse Resp BP Pulse Ox 06/17/18 08:00 97.7 F 71 20 100 06/17/18 07:50 97.7 F 71 20 127/76 100 Weight Admit Weight 145 lb 4 oz Weight 145 lb I&O: 06/16/18 06/17/18 06/18/18 06:59 06:59 06:59 Intake Total 1200 1620 Balance 1200 1620 Result Diagrams: 06/14/18 03:58 06/14/18 03:58 Radiology Reviewed by me: Yes Phys Exam - Physical Examination HEENT: PERRLA, moist MMs Neck: no nodes, no JVD Respiratory: no wheezing, no rales Cardiovascular: RRR, no significant murmur Gastrointestinal: soft, non-tender Musculoskeletal: no edema, pulses present Neurological: non-focal, normal sensation Lymphatic: no nodes Psychiatric: normal affect Dx/Plan (1) Gangrene of toe of left foot Code(s): I96 - GANGRENE, NOT ELSEWHERE CLASSIFIED Status: Acute Comment: dry gangrene due to PAD, Plan for BKA plan as per today. Will follow ID recommedations. (2) Metastatic disease Code(s): C79.9 - SECONDARY MALIGNANT NEOPLASM OF UNSPECIFIED SITE Status: Acute Comment: Dr. elias to Follow up as outpaitent. (3) Anemia, normocytic normochromic Code(s): D64.9 - ANEMIA, UNSPECIFIED Status: Chronic Comment: Likely from metastitc to Bone, with marrow suppresision,. (4) Aneurysm of aortic arch Code(s): I71.2 - THORACIC AORTIC ANEURYSM, WITHOUT RUPTURE Status: Chronic Comment: Stbale at 4.4, will need repeat CT in 6-8 months. follow up with CT surgery. (5) Atherosclerosis of aortic arch Code(s): I70.0 - ATHEROSCLEROSIS OF AORTA Status: Chronic Comment: Will continue with medical amangement of Cholesteral amagement (6) Carotid stenosis Code(s): I65.29 - OCCLUSION AND STENOSIS OF UNSPECIFIED CAROTID ARTERY Status : Chronic Comment: Insignificant on CTA. Will continue with medical managaement. (7) Chronic systolic heart failure, ACC/AHA stage C Code(s): I50.22 - CHRONIC SYSTOLIC (CONGESTIVE) HEART FAILURE Status: Chronic (8) PAD (peripheral artery disease) Code(s): I73.9 - PERIPHERAL VASCULAR DISEASE, UNSPECIFIED Status: Chronic Comment: Plan as Above. Aspirin following surgery. (9) Protein-calorie malnutrition, moderate Code(s): E44.0 - MODERATE PROTEIN-CALORIE MALNUTRITION Status: Chronic Comment: Will follow with Diatary recommedations Post suregry for better wound healing - Plan cont current plan of care, continue antibiotics, PT/OT, social studies department chair, incentive spirometry, out of bed/ambulate, DVT proph w/lovenox * . Review of Systems - Review of Systems Constitutional: negative: fever, chills, sweats, weakness, malaise, other Eyes: negative: Pain, Vision Change, Conjunctivae Inflammation, Eyelid Inflammation, Redness, Other ENT: negative: Ear Pain, Ear Discharge, Nose Pain, Nose Discharge, Nose Congestion, Mouth Pain, Mouth Swelling, Throat Pain, Throat Swelling, Other Respiratory: negative: Cough, Dry, Shortness of Breath, Hemoptysis, SOB with Excertion, Pleuritic Pain, Sputum, Wheezing Cardiovascular: negative: chest pain, palpitations, orthopnea, paroxysmal nocturnal dyspnea, edema, light headedness, other Gastrointestinal: negative: Nausea, Vomiting, Abdominal Pain, Diarrhea, Constipation, Melena, Hematochezia, Other Genitourinary: negative: Dysuria, Frequency, Incontinence, Hematuria, Retention , Other Musculoskeletal: Foot Pain - Medications/Allergies Allergies/Adverse Reactions: Allergies Allergy/AdvReac Type Severity Reaction Status Date / Time No Known Drug Allergies Allergy Verified 06/09/18 04:17 Medications: Current Medications Acetaminophen (Tylenol) 650 mg PO Q4H PRN PRN Reason: Headache/Fever or Pain Hydrocodone Bitart/Acetaminophen ([place] 10/325) 1 tab PO Q4H PRN PRN Reason: Pain 1-5 Hydrocodone Bitart/Acetaminophen ([place] 10/325) 2 tab PO Q4H PRN PRN Reason: Pain 6-10 Last Admin: 06/17/18 11:48 Dose: 2 tab Al Hydroxide/Mg Hydroxide (Maalox) 30 ml PO Q6H PRN PRN Reason: Heartburn or Indigestion Albuterol/Ipratropium (Duoneb) 3 ml NEB Q4H PRN PRN Reason: SOB Amoxicillin/Clavulanate Potassium (Augmentin) 500 mg PO Q12HR [facility] Last Admin: 06/17/18 08:13 Dose: 500 mg Artificial Tears (Tears Renewed 15ml Bottle) 0 drop EA EYE PRN PRN PRN Reason: Dry Eyes Aspirin (Aspirin Chewable) 81 mg PO DAILY [facility] Last Admin: 06/17/18 08:13 Dose: 81 mg Atorvastatin Calcium (Lipitor) 20 mg PO HS [facility] Last Admin: 06/16/18 20:03 Dose: 20 mg Bicalutamide (Casodex) 50 mg PO DAILY [facility] Last Admin: 06/17/18 08:14 Dose: 50 mg Clopidogrel Bisulfate (Plavix) 75 mg PO DAILY [facility] Last Admin: 06/17/18 08:12 Dose: 75 mg Doxycycline Hyclate (Vibramycin) 100 mg PO BID [facility] Last Admin: 06/17/18 08:13 Dose: 100 mg Enoxaparin Sodium (Lovenox) 40 mg SC 0900 [facility] Last Admin: 06/17/18 08:13 Dose: 40 mg Ferrous Gluconate (Fergon) 324 mg PO QAM-WM [facility] Last Admin: 06/17/18 08:13 Dose: 324 mg Furosemide (Lasix) 40 mg PO DAILY-AC [facility] Last Admin: 06/17/18 08:13 Dose: 40 mg Guaifenesin (Robitussin Sf) 200 mg PO Q4H PRN PRN Reason: Cough Hydralazine HCl (Apresoline) 10 mg SLOW IVP Q4H PRN PRN Reason: Systolic BP > 180 Labetalol HCl (Normodyne) 20 mg SLOW IVP Q4H PRN PRN Reason: Systolic BP > 180 Loperamide HCl (Imodium) 2 mg PO PRN PRN PRN Reason: Diarrhea/Loose Stools Loratadine (Claritin) 10 mg PO DAILYPRN PRN PRN Reason: Sinus Symptoms Magnesium Hydroxide (Milk Of Magnesium) 30 ml PO DAILYPRN PRN PRN Reason: Constipation Mineral Oil/White Petrolatum (Eucerin Cream) 0 gm TOP BIDPRN PRN PRN Reason: Dry Skin Morphine Sulfate (Morphine) 4 mg SLOW IVP Q4H PRN PRN Reason: Pain Last Admin: 06/16/18 09:28 Dose: 4 mg Multivitamins (Theragran) 1 tab PO DAILY [facility] Last Admin: 06/17/18 08:13 Dose: 1 tab Nicotine (Nicoderm Patch) 21 mg TD Q24HR [facility] Last Admin: 06/17/18 14:44 Dose: 21 mg Nitroglycerin (Nitrostat) 0.4 mg SL Q5MIN PRN PRN Reason: Chest Pain Ondansetron HCl (Zofran Odt) 4 mg PO Q6H PRN PRN Reason: Nausea/Vomiting Ondansetron HCl (Zofran) 4 mg IVP Q6H PRN PRN Reason: Nausea/Vomiting Pantoprazole Sodium (Protonix) 40 mg PO DAILY [facility] Last Admin: 06/17/18 08:13 Dose: 40 mg Phenol (Chloraseptic [place] 180 Ml Bot) 0 ml PO PRN PRN PRN Reason: Sore Throat Potassium Chloride (Klor-Con 10) 10 meq PO QAM-WM [facility] Last Admin: 06/17/18 08:12 Dose: 10 meq Saccharomyces Boulardii (Florastor) 250 mg PO DAILY [facility] Last Admin: 06/17/18 08:13 Dose: 250 mg Senna (Senokot) 2 tab PO HSPRN PRN PRN Reason: Constipation Sodium Chloride ([place] Nasal [place] 0.65%) 0 ml EA NARE QIDPRN PRN PRN Reason: Nasal Congestion Sodium Chloride (Flush - Normal Saline) 10 ml IVF Q12HR [facility] Last Admin: 06/17/18 08:14 Dose: 10 ml Sodium Chloride (Flush - Normal Saline) 10 ml IVF PRN PRN PRN Reason: Saline Flush Valsartan (Diovan) 80 mg PO DAILY [facility] Last Admin: 06/17/18 08:14 Dose: 80 mg Zolpidem Tartrate (Ambien) 5 mg PO HSPRN PRN PRN Reason: Insomnia
[2018-06-17] MEDS ORDERED: CEFAZOLIN/Water 2 GM/20 ML SYRINGE SLOW IVP SCH (18:45)
[2018-06-17] MEDS: Atorvastatin Calcium 20 MG TAB PO SCH (19:52)
[2018-06-17] MEDS: Morphine 4 MG/ML VIAL SLOW IVP PRN (23:30)
--- NOTE | 2018-06-18 02:38 | CON ---
DATE OF CONSULTATION: 06/17/2018 REASON FOR CONSULT: Left toe gangrene with severe peripheral vascular disease. HISTORY OF PRESENT ILLNESS: Mr. Rene is a 72-year-old man who came into the hospital with severe ivana n in his left fourth toe. He states that he cannot say how long it has been going on, but when his d aughter came to see him, the toenail had fallen off and when they soaked his foot in some warm water, she noticed maggots coming out of the wound. He states that the pain has been growing in inte nsity and that it is constant and throbbing in nature. He does not have pain in the other toes. Sin ce his admission to the hospital, he has been evaluated by Vascular Surgery, they performed angiograp hy of the left leg and this showed mild atherosclerotic disease down to the level of the popliteal ar roz, but his anterior and posterior tibial and peroneal arteries were all small, diffusely diseased and did not remain patent down to the level of the ankle. Since he had no suitable vessel to improve blood flow to the foot. It was felt that toe amputation will be doomed to failure and left below kn ee amputation was recommended. The patient has decided to proceed with this due to the pain in his t oe which is ongoing and severe. He does smoke half a pack a day, but is interested in quitting. He is not diabetic and has not had any previous toe amputations. He is an active, independent community ambulator prior to admission. PAST MEDICAL HISTORY: Tobacco abuse; coronary artery disease, status post stenting; hypertension; hy perlipidemia; metastatic prostate cancer; and a reported history of heart failure, although recent ec hocardiogram showed an ejection fraction of 60-65%. He did have grade I/III diastolic dysfunction. PAST SURGICAL HISTORY: Multiple finger amputations for furosemide and coronary artery stenting and t he procedure of some sort for a stomach ulcer. SOCIAL HISTORY: Half pack a day smoker. No drug abuse. Social alcohol use. He lives with his fami ly and has been using a walker in home to ambulate. FAMILY HISTORY: Noncontributory. OUTPATIENT MEDICATIONS: Include aspirin, Lipitor, bicalutamide, Plavix, Lasix, Toprol-XL, nitroglyce rin, multivitamin, Protonix, potassium, valsartan, and Tylenol. INPATIENT MEDICATIONS: Include Augmentin, DuoNeb, aspirin, Lipitor, bicalutamide, Plavix, doxycyclin e, Lovenox, iron, Lasix, multivitamin, nicotine patch, Protonix, potassium, Florastor, valsartan, and multiple as needed medications. IMAGING: Angiogram results are as per HPI. Carotid Doppler showed low peak velocity in the right in ternal carotid artery and CT angio showed a fusiform aneurysm of the aortic arch up to 4.4 cm with a small ulcer on the distal aortic arch and multiple areas of moderate stenosis involving the right int ernal carotid, and diffuse osteoblastic metastatic disease. LABORATORY DATA: White count is low at 3. Hematocrit is 25.8, platelets 155,000. INR 1. Chemistry showed a low potassium at 3.3. C-reactive protein of 6.47. PSA of 1.37, albumin of 3.3, normal LFT s and BUN and creatinine of 12 and 0.63. Urine showed moderate blood, but this was not gross and sma ll leukocyte esterase. Last vancomycin trough was on the and was 15.8. Blood cultures have bee n negative. PHYSICAL EXAMINATION: VITAL SIGNS: Temperature 97.7. Patient has been afebrile through his hospital course, heart rate 71 , respirations 20, 100% saturated on room air, blood pressure 127/76. GENERAL: Reveals a thin gentleman in no acute distress. He is not flushed or toxic. He is not teresa diced or icteric. HEENT: Unremarkable. NECK: Supple without lymphadenopathy or thyroid nodules. HEART: Regular in its rate and rhythm. I do not appreciate any murmurs, rubs, or gallops. LUNGS: Clear to auscultation bilaterally. ABDOMEN: Soft, nontender, nondistended, without hernias or masses. EXTREMITIES: Warm and well perfused down to the knees. He has chronic skin changes consistent with hypoperfusion on both shins. He has gangrene of the left fourth toe, which is swollen, but there is no ascending erythema onto the forefoot and no expressible drainage. He has normal palpable femoral and popliteal pulses bilaterally, but no pedal pulses. DENIS was recorded as 0.85. The ultrasound rep ort, but this does not really correlate with the findings on his angiogram and both of his feet are v carlton cool to the touch and have delayed capillary refill suggestive of severe peripheral vascular dise ase. ASSESSMENT: Gangrene of the left fourth toe without evidence of active ascending infection. Dr. Paramjit nieto does not think he has adequate peripheral circulation to heal a toe amputation and based on his an giogram and physical exam, I agree. At this point, his options are toe amputation with a very high r ate of failure to heal and risk of ascending infection into the foot versus left below knee amputatio n with aggressive rehab and fitting with a prosthesis. The patient has decided to proceed with left [id number] amputation. I have placed him on the schedule for tomorrow for this. The procedure a nd its inherent risks were discussed with the patient. These include, but are not limited to bleedin g, infection, risks of anesthesia, wound healing problems and need further procedures. He understand s and accepts these risks and wishes to proceed. All of his questions were answered. He will be mad e n.p.o. after midnight.
[2018-06-18] MEDS: Clopidogrel Bisulfate 75 MG TAB PO SCH (08:34)
[2018-06-18] MEDS: Ferrous Gluconate 324 MG TAB PO SCH (08:34)
[2018-06-18] MEDS: Furosemide 40 MG TAB PO SCH (08:34)
[2018-06-18] MEDS: Enoxaparin Sodium 40 MG/0.4 ML SYRINGE SC SCH (08:35)
[2018-06-18] MEDS: Multivit, Therapeutic 1 TAB PO SCH (08:35)
[2018-06-18] MEDS: Saccharomyces boulardii 250 MG CAP PO SCH (08:35)
[2018-06-18] MEDS: Doxycycline 100 MG CAP PO SCH ×2 (08:45→20:32)
[2018-06-18] MEDS: Amoxicillin/Potassium Clav 500 MG TAB PO SCH ×2 (08:45→20:30)
[2018-06-18] MEDS: Potassium Chloride 10 MEQ TAB PO SCH (08:45)
[2018-06-18] MEDS: Valsartan 80 MG TAB PO SCH (08:45)
[2018-06-18] MEDS: Bicalutamide 50 MG TAB PO SCH (08:45)
[2018-06-18] MEDS: Morphine 4 MG/ML VIAL SLOW IVP PRN ×2 (08:48→13:15)
[2018-06-18] MEDS ORDERED: Lidocaine 1% PF 5 ML VIAL ONE (13:52)
[2018-06-18] MEDS ORDERED: ePHEDrine/0.9% NaCl/PF SYRINGE 50 mg/10 ml ONE (13:52)
[2018-06-18] MEDS ORDERED: Ondansetron HCl/PF 4 MG/2 ML Vial ONE (13:52)
[2018-06-18] MEDS ORDERED: PROPOFOL 200 MG/20 ML VIAL ONE (13:52)
[2018-06-18] MEDS ORDERED: Dexamethasone 20 MG/5 ML VIAL ONE (13:52)
[2018-06-18] MEDS ORDERED: PHENYLEPHRINE-NS 100 MCG/ML 10 ML SYRINGE ONE (13:52)
[2018-06-18] MEDS ORDERED: CEFAZOLIN/Water 2 GM/20 ML SYRINGE ONE (15:49)
[2018-06-18] MEDS ORDERED: Fentanyl 100 MCG/2 ML VIAL ONE ×3 (16:32→18:57)
[2018-06-18] MEDS: Nicotine 21 MG PATCH TD SCH (17:50)
[2018-06-18] MEDS ORDERED: Promethazine HCl 25 MG/ML VIAL SLOW IVP PRN (18:51)
[2018-06-18] MEDS ORDERED: Ondansetron HCl/PF 4 MG/2 ML Vial IVP PRN ×2 (18:51→19:21)
[2018-06-18] MEDS ORDERED: Promethazine HCl 25 MG/ML VIAL IM PRN ×2 (18:51→19:21)
[2018-06-18] MEDS ORDERED: fentaNYL Citrate/PF 2,000 MCG in Sodium Chloride 0.9% 60 ML IV PRN (19:21)
[2018-06-18] MEDS ORDERED: Zolpidem Tartrate 5 MG TAB PO PRN (19:21)
[2018-06-18] MEDS ORDERED: diphenhydrAMINE 25 MG CAP PO PRN (19:21)
[2018-06-18] MEDS ORDERED: diphenhydrAMINE 50 MG/ML VIAL IVP PRN (19:21)
[2018-06-18] MEDS ORDERED: diphenhydrAMINE 50 MG/ML VIAL IM PRN (19:21)
[2018-06-18] MEDS ORDERED: Naloxone HCl 0.4 mg/ml Vial IV PRN (19:21)
[2018-06-18] MEDS ORDERED: Communication Order-Pharmacy FS SCH (19:30)
--- NOTE | 2018-06-18 19:40 | PDOC.OP ---
Operative Note - Operative Note Operative Note: PROCEDURE: Left below-knee amputation DATE OF PROCEDURE: 06/18/2018 SURGEON: Rosalba Isidro M.D. ASST.: Johana Mena MS 3 PREOPERATIVE DIAGNOSES: Gangrene of left fourth toe with severe peripheral vascular disease POSTOPERATIVE DIAGNOSIS: Gangrene of left fourth toe with severe peripheral vascular disease HISTORY: Patient has gangrene of the left fourth toe with severe trifurcation disease and no appropriate targets for revascularization. Vascular surgery does not believe that he has adequate perfusion to the foot to heal a toe amputation. The patient has decided to proceed with below-knee amputation. PROCEDURE IN DETAIL: After informed consent was obtained and appropriate preoperative antibiotics continued patient was taken to the operating room he was placed in supine position and general anesthesia administered. He was prepped and draped in the standard sterile fashion and a short anterior and long posterior flap measured and marked on the leg. The skin and subcutaneous tissues were divided and the tibia clear to anterior using Bovie electrocautery to divide the muscle. The anterior tibial vessels were identified clamped and ligated. The artery was almost completely occluded by plaque. The periosteum was elevated and a Gigli saw passed posterior to the tibia which was transected , angling upward anteriorly to avoid a sharp edge under the skin. The muscles between the tibia and fibula were then divided using Bovie electrocautery. The posterior tibial vessels were identified clamped and ligated. This artery was also almost completely occluded by plaque. The fibula was then transected using rib alee at a level several centimeters proximal to the tibia. The amputation blade was then passed posterior to the tibia and fibula and drawn down behind these bones and then out through the skin distally creating the long posterior flap which had been previously marked. The peroneal vessels were identified clamped and ligated. The nerves were identified drawn down into the wound ligated divided and allowed to retract into the soft tissues. The soleus muscle was trimmed to allow tension-free closure of the posterior flap. Hemostasis on the posterior flap was obtained using Bovie electrocautery. Bone rasp was used to smooth the edges of the tibia and the sharp edges of the fibula were rongeured down smooth. The wound was then copiously irrigated and any small muscular bleeders controlled with Bovie electrocautery. The tissues appeared healthy and viable at the level of amputation. The posterior flap was then drawn up over the bone and the muscular fascia reapproximated with figure of 8 2 -0 Vicryl sutures. Some deep dermal sutures were used to approximate the skin edges and the skin was then closed with skin lola. The stump was dressed with Xeroform and fluffs dressings and secured with Kerlix and Rafy wrap. Estimated blood loss was 150 mL's. There were no complications. Specimen is left leg.
--- NOTE | 2018-06-18 20:19 | PDOC.PN ---
- Subjective Encounter Start Date: 06/18/18 Encounter Start Time: 15:00 Patient seen and examined for LLE gangrene. No new complaints. No overnight events - Objective Resuscitation Status: Resuscitation Status FULL:Full Resuscitation MAR Reviewed: Yes Vital Signs & Weight: Vital Signs (12 hours) Temp Pulse Resp BP Pulse Ox 06/18/18 15:23 97.9 F 74 18 124/79 100 06/18/18 11:10 97.6 F 80 18 123/78 100 Weight Admit Weight 145 lb 4 oz Weight 145 lb I&O: 06/17/18 06/18/18 06/19/18 06:59 06:59 06:59 Intake Total 1620 985 2 Balance 1620 985 2 Result Diagrams: 06/14/18 03:58 06/14/18 03:58 Phys Exam - Physical Examination Constitutional: NAD Respiratory: no wheezing, no rhonchi Cardiovascular: RRR, no rub Gastrointestinal: soft, non-tender, positive bowel sounds Musculoskeletal: no edema Gangrene of Left 4th toe Neurological: moves all 4 limbs Dx/Plan - Plan IMPRESSION: - Gangrene of L 4th toe - PVD - Metastatic Prostatic Ca - CAD - HTN - HLD - Tobacco dep PLAN: Amputation today Pain control Cont current meds as below Cont ASA/Plavix Cont Casodex Review of Systems - Review of Systems Respiratory: negative: Cough, Dry, Shortness of Breath, Hemoptysis, SOB with Excertion, Pleuritic Pain, Sputum, Wheezing Cardiovascular: negative: chest pain, palpitations, orthopnea, paroxysmal nocturnal dyspnea, edema, light headedness, other - Medications/Allergies Allergies/Adverse Reactions: Allergies Allergy/AdvReac Type Severity Reaction Status Date / Time No Known Drug Allergies Allergy Verified 06/09/18 04:17 Medications: Current Medications Acetaminophen (Tylenol) 650 mg PO Q4H PRN PRN Reason: Headache/Fever or Pain Hydrocodone Bitart/Acetaminophen ([place] 10/325) 1 tab PO Q4H PRN PRN Reason: Pain 1-5 Hydrocodone Bitart/Acetaminophen ([place] 10/325) 2 tab PO Q4H PRN PRN Reason: Pain 6-10 Last Admin: 06/17/18 19:53 Dose: 2 tab Al Hydroxide/Mg Hydroxide (Maalox) 30 ml PO Q6H PRN PRN Reason: Heartburn or Indigestion Albuterol/Ipratropium (Duoneb) 3 ml NEB Q4H PRN PRN Reason: SOB Amoxicillin/Clavulanate Potassium (Augmentin) 500 mg PO Q12HR [facility] Last Admin: 06/18/18 08:45 Dose: Not Given Artificial Tears (Tears Renewed 15ml Bottle) 0 drop EA EYE PRN PRN PRN Reason: Dry Eyes Aspirin (Aspirin Chewable) 81 mg PO DAILY [facility] Last Admin: 06/18/18 08:34 Dose: Not Given Atorvastatin Calcium (Lipitor) 20 mg PO HS [facility] Last Admin: 06/17/18 19:52 Dose: 20 mg Bicalutamide (Casodex) 50 mg PO DAILY [facility] Last Admin: 06/18/18 08:45 Dose: Not Given Clopidogrel Bisulfate (Plavix) 75 mg PO DAILY [facility] Last Admin: 06/18/18 08:34 Dose: Not Given Diphenhydramine HCl (Benadryl) 25 mg IVP Q3H PRN PRN Reason: Itching Diphenhydramine HCl (Benadryl) 25 mg PO Q3H PRN PRN Reason: Itching Diphenhydramine HCl (Benadryl) 25 mg IM Q3H PRN PRN Reason: Itching Doxycycline Hyclate (Vibramycin) 100 mg PO BID [facility] Last Admin: 06/18/18 08:45 Dose: Not Given Enoxaparin Sodium (Lovenox) 40 mg SC 0900 [facility] Last Admin: 06/18/18 08:35 Dose: Not Given Fentanyl (Pacu-Sublimaze) 50 mcg SLOW IVP Q10MIN PRN PRN Reason: Moderate to Severe Pain (6-10) Stop: 06/18/18 21:51 Ferrous Gluconate (Fergon) 324 mg PO QAM-WM [facility] Last Admin: 06/18/18 08:34 Dose: Not Given Furosemide (Lasix) 40 mg PO DAILY-AC [facility] Last Admin: 06/18/18 08:34 Dose: Not Given Guaifenesin (Robitussin Sf) 200 mg PO Q4H PRN PRN Reason: Cough Hydralazine HCl (Apresoline) 10 mg SLOW IVP Q4H PRN PRN Reason: Systolic BP > 180 Fentanyl Citrate 2,000 mcg/ (Sodium Chloride) 100 mls @ 0 mls/hr IV INF PRN; As Directed PRN Reason: Pain Labetalol HCl (Normodyne) 20 mg SLOW IVP Q4H PRN PRN Reason: Systolic BP > 180 Loperamide HCl (Imodium) 2 mg PO PRN PRN PRN Reason: Diarrhea/Loose Stools Loratadine (Claritin) 10 mg PO DAILYPRN PRN PRN Reason: Sinus Symptoms Magnesium Hydroxide (Milk Of Magnesium) 30 ml PO DAILYPRN PRN PRN Reason: Constipation Mineral Oil/White Petrolatum (Eucerin Cream) 0 gm TOP BIDPRN PRN PRN Reason: Dry Skin Morphine Sulfate (Pacu-Morphine Sulfate) 4 mg SLOW IVP ONE PRN PRN Reason: Moderate to Severe Pain (6-10) Stop: 06/18/18 21:51 Multivitamins (Theragran) 1 tab PO DAILY [facility] Last Admin: 06/18/18 08:35 Dose: Not Given Naloxone HCl (Narcan) 0.2 mg IV Q5MIN PRN PRN Reason: Opiate Reversal Nicotine (Nicoderm Patch) 21 mg TD Q24HR [facility] Last Admin: 06/18/18 17:50 Dose: Not Given Nitroglycerin (Nitrostat) 0.4 mg SL Q5MIN PRN PRN Reason: Chest Pain Ondansetron HCl (Zofran Odt) 4 mg PO Q6H PRN PRN Reason: Nausea/Vomiting Ondansetron HCl (Zofran) 4 mg IVP Q6H PRN PRN Reason: Nausea/Vomiting Ondansetron HCl (Pacu-Zofran) 4 mg IVP ONE PRN PRN Reason: Nausea/Vomiting Stop: 06/18/18 21:51 Ondansetron HCl (Zofran) 4 mg IVP Q6H PRN PRN Reason: Nausea/Vomiting Pantoprazole Sodium (Protonix) 40 mg PO DAILY [facility] Last Admin: 06/18/18 08:35 Dose: Not Given Phenol (Chloraseptic [place] 180 Ml Bot) 0 ml PO PRN PRN PRN Reason: Sore Throat Potassium Chloride (Klor-Con 10) 10 meq PO QAM-[facility] Last Admin: 06/18/18 08:45 Dose: Not Given Promethazine HCl (Pacu-Phenergan) 6.25 mg SLOW IVP ONE PRN PRN Reason: Nausea/Vomiting Stop: 06/18/18 21:51 Promethazine HCl (Pacu-Phenergan) 6.25 mg IM ONE PRN PRN Reason: Nausea/Vomiting Stop: 06/18/18 21:51 Promethazine HCl (Phenergan) 12.5 mg IM Q4H PRN PRN Reason: Nausea/Vomiting Saccharomyces Bocasiedii (Florastor) 250 mg PO DAILY [facility] Last Admin: 06/18/18 08:35 Dose: Not Given Senna (Senokot) 2 tab PO HSPRN PRN PRN Reason: Constipation Sodium Chloride ([place] Nasal [place] 0.65%) 0 ml EA NARE QIDPRN PRN PRN Reason: Nasal Congestion Sodium Chloride (Flush - Normal Saline) 10 ml IVF Q12HR [facility] Last Admin: 06/18/18 08:48 Dose: 10 ml Sodium Chloride (Flush - Normal Saline) 10 ml IVF PRN PRN PRN Reason: Saline Flush Valsartan (Diovan) 80 mg PO DAILY [facility] Last Admin: 06/18/18 08:45 Dose: Not Given Zolpidem Tartrate (Ambien) 5 mg PO HSPRN PRN PRN Reason: Insomnia Zolpidem Tartrate (Ambien) 5 mg PO HSPRN PRN PRN Reason: Insomnia
[2018-06-18] MEDS: Atorvastatin Calcium 20 MG TAB PO SCH (20:32)
[2018-06-19] MEDS: HYDROcodone/Acetaminophen 10/325 mg Tablet PO PRN ×2 (05:33→20:24)
[2018-06-19 06:01] LABS: #Lymphocytes 1.5 thou/uL (1.20-3.40); #Monocytes 0.7 thou/uL (0.11-0.59); #Neutrophils 5.5 thou/uL (1.40-6.50); %Basophils 0.1 % (0.0-1.0); %Eosinophils 0.2 % (0.0-10.0); %Lymphocytes 18.9 % (21.0-51.0); %Monocytes 9.3 % (0.0-10.0); %Neutrophils 71.3 % (42.0-75.0); Mean Corpuscular HGB CONC 31.3 g/dL (32.0-36.0); Mean Corpuscular Hemoglobin 27.9 pg (27.0-31.0); Mean Platelet Volume 8.3 fL (7.4-10.4); Platelet Count 225 thou/uL (130-400); RBC Distribution Width 15.9 % (11.5-14.5); Red Blood Cell (RBC) Count 2.88 mill/uL (4.70-6.10); White Blood Cell (WBC) Count 7.7 thou/uL (4.8-10.8)
[2018-06-19 06:19] LABS: ALT (SGPT) 14 U/L (8-55); AST (SGOT) 22 U/L (5-34); Albumin 3.7 g/dL (3.4-4.8); Alkaline Phosphatase 71 U/L (40-150); Anion Gap 15 mmol/L (10-20); BUN (Urea Nitrogen) 19 mg/dL (8.4-25.7); Bilirubin, Total 0.2 mg/dL (0.2-1.2); Calc. Creatinine Clearance 100 mL/min (70-130); Calcium 9.6 mg/dL (7.8-10.44); Carbon Dioxide 23 mmol/L (23-31); Chloride 104 mmol/L (98-107); Estimated GFR-MDRD Greater than 90; Globulin 3.7 g/dL (2.4-3.5); Glucose 117 mg/dL (83-110); Magnesium 1.9 mg/dL (1.6-2.6); Potassium 4.3 mmol/L (3.5-5.1); Protein, Total 7.4 g/dL (5.8-8.1); Sodium 138 mmol/L (136-145)
[2018-06-19] MEDS: Amoxicillin/Potassium Clav 500 MG TAB PO SCH ×2 (08:15→20:24)
[2018-06-19] MEDS: Potassium Chloride 10 MEQ TAB PO SCH (08:15)
[2018-06-19] MEDS: Clopidogrel Bisulfate 75 MG TAB PO SCH (08:15)
[2018-06-19] MEDS: Valsartan 80 MG TAB PO SCH (08:15)
[2018-06-19] MEDS: Doxycycline 100 MG CAP PO SCH ×2 (08:15→20:24)
[2018-06-19] MEDS: Saccharomyces boulardii 250 MG CAP PO SCH (08:16)
[2018-06-19] MEDS: Furosemide 40 MG TAB PO SCH (08:16)
[2018-06-19] MEDS: Multivit, Therapeutic 1 TAB PO SCH (08:16)
[2018-06-19] MEDS: Bicalutamide 50 MG TAB PO SCH (08:16)
[2018-06-19] MEDS: Ferrous Gluconate 324 MG TAB PO SCH (08:16)
[2018-06-19] MEDS: Enoxaparin Sodium 40 MG/0.4 ML SYRINGE SC SCH (08:17)
--- NOTE | 2018-06-19 15:53 | PDOC.GSPN ---
Surgery Progress Note: Subj - Subjective Narrative: Patient is feeling okay today. He is not having much pain in his foot. His vital signs were all right except for intermittent hypertension. White count is 7.7 and hematocrit is 25. Lytes are normal. His stump is wrapped and no evidence of bleeding or significant swelling. Assessment/plan status post left BKA doing well. PT/OT/inpatient rehabilitation consults. Surgery Progress Note: Obj - Vital signs Vital signs: Vital Signs - Most Recent Temp Pulse Resp BP Pulse Ox 97.9 F 91 18 192/90 H 96 06/19/18 11:13 06/19/18 11:13 06/19/18 11:13 06/19/18 11:13 06/19/18 11:13 Surgery Progress Note: Results - Labs Result Diagrams: 06/19/18 05:32 06/19/18 05:32 Lab results: Laboratory Results - last 24 hr 06/19/18 06/19/18 05:32 05:32 WBC 7.7 RBC 2.88 L Hgb 8.0 L Hct 25.7 L MCV 89.0 MCH 27.9 MCHC 31.3 L RDW 15.9 H Plt Count 225 MPV 8.3 Neutrophils % 71.3 Lymphocytes % 18.9 L Monocytes % 9.3 Eosinophils % 0.2 Basophils % 0.1 Neutrophils # 5.5 Lymphocytes # 1.5 Monocytes # 0.7 H Eosinophils # 0.0 Basophils # 0.0 Sodium 138 Potassium 4.3 Chloride 104 Carbon Dioxide 23 Anion Gap 15 BUN 19 Creatinine 0.63 Estimated GFR (MDRD) Greater than 90 Glucose 117 H Calcium 9.6 Magnesium 1.9 Total Bilirubin 0.2 AST 22 ALT 14 Alkaline Phosphatase 71 Serum Total Protein 7.4 Albumin 3.7 Globulin 3.7 H Albumin/Globulin Ratio 1.0 L
[2018-06-19] MEDS ORDERED: hydrALAZINE 20 MG/ML VIAL SLOW IVP PRN (16:26)
[2018-06-19] MEDS ORDERED: Labetalol HCl 100 MG/20 ML VIAL SLOW IVP PRN (16:26)
[2018-06-19] MEDS ORDERED: cloNIDine 0.1 MG TAB PO PRN (16:26)
--- NOTE | 2018-06-19 16:29 | PDOC.PN ---
- Subjective Encounter Start Date: 06/19/18 Encounter Start Time: 10:50 Patient seen and examined for Gangrene s/p L BKA. No new complaints. No overnight events - Objective Resuscitation Status: Resuscitation Status FULL:Full Resuscitation MAR Reviewed: Yes Vital Signs & Weight: Vital Signs (12 hours) Temp Pulse Resp BP BP Pulse Ox 06/19/18 16:00 98.8 F 91 18 154/89 H 95 06/19/18 11:13 97.9 F 91 18 192/90 H 96 06/19/18 08:00 98.2 F 91 16 96 06/19/18 07:21 98.2 F 91 16 174/84 H 96 Weight Admit Weight 145 lb 4 oz Weight 145 lb I&O: 06/18/18 06/19/18 06/20/18 06:59 06:59 06:59 Intake Total 985 395 180 Balance 985 395 180 Result Diagrams: 06/19/18 05:32 06/19/18 05:32 Phys Exam - Physical Examination Constitutional: NAD Respiratory: no wheezing, no rhonchi Cardiovascular: RRR, no rub Gastrointestinal: soft, non-tender, positive bowel sounds Musculoskeletal: no edema L bka Dx/Plan - Plan continue antibiotics, PT/OT, DVT proph w/heparin IMPRESSION: - Gangrene of L 4th toe - PVD - Metastatic Prostatic Ca - CAD - HTN - uncontrolled - HLD - Tobacco dep 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 Resume Toprol XL, Add PRN meds, Cont Losartan Cont current meds as below Cont ASA/Plavix Cont Casodex Change Lovenox to SQ Heparin Cont to monitor Review of Systems - Medications/Allergies Allergies/Adverse Reactions: Allergies Allergy/AdvReac Type Severity Reaction Status Date / Time No Known Drug Allergies Allergy Verified 06/09/18 04:17 Medications: Current Medications Acetaminophen (Tylenol) 650 mg PO Q4H PRN PRN Reason: Headache/Fever or Pain Hydrocodone Bitart/Acetaminophen ([place] 10/325) 1 tab PO Q4H PRN PRN Reason: Pain 1-5 Last Admin: 06/19/18 05:33 Dose: 1 tab Hydrocodone Bitart/Acetaminophen ([place] 10/325) 2 tab PO Q4H PRN PRN Reason: Pain 6-10 Last Admin: 06/17/18 19:53 Dose: 2 tab Al Hydroxide/Mg Hydroxide (Maalox) 30 ml PO Q6H PRN PRN Reason: Heartburn or Indigestion Albuterol/Ipratropium (Duoneb) 3 ml NEB Q4H PRN PRN Reason: SOB Amoxicillin/Clavulanate Potassium (Augmentin) 500 mg PO Q12HR [facility] Last Admin: 06/19/18 08:15 Dose: 500 mg Artificial Tears (Tears Renewed 15ml Bottle) 0 drop EA EYE PRN PRN PRN Reason: Dry Eyes Aspirin (Aspirin Chewable) 81 mg PO DAILY [facility] Last Admin: 06/19/18 08:16 Dose: 81 mg Atorvastatin Calcium (Lipitor) 20 mg PO HS [facility] Last Admin: 06/18/18 20:32 Dose: 20 mg Bicalutamide (Casodex) 50 mg PO DAILY [facility] Last Admin: 06/19/18 08:16 Dose: 50 mg Clonidine (Catapres) 0.1 mg PO Q4H PRN PRN Reason: Systolic BP > 180 Clopidogrel Bisulfate (Plavix) 75 mg PO DAILY [facility] Last Admin: 06/19/18 08:15 Dose: 75 mg Diphenhydramine HCl (Benadryl) 25 mg IVP Q3H PRN PRN Reason: Itching Diphenhydramine HCl (Benadryl) 25 mg PO Q3H PRN PRN Reason: Itching Diphenhydramine HCl (Benadryl) 25 mg IM Q3H PRN PRN Reason: Itching Doxycycline Hyclate (Vibramycin) 100 mg PO BID [facility] Last Admin: 06/19/18 08:15 Dose: 100 mg Ferrous Gluconate (Fergon) 324 mg PO QAM-WM [facility] Last Admin: 06/19/18 08:16 Dose: 324 mg Furosemide (Lasix) 40 mg PO DAILY-AC [facility] Last Admin: 06/19/18 08:16 Dose: 40 mg Guaifenesin (Robitussin Sf) 200 mg PO Q4H PRN PRN Reason: Cough Heparin Sodium (Porcine) (Heparin) 5,000 units SC BID [facility] Hydralazine HCl (Apresoline) 10 mg SLOW IVP Q4H PRN PRN Reason: Systolic BP > 180 Hydralazine HCl (Apresoline) 10 mg SLOW IVP Q4H PRN PRN Reason: SBP Greater Than 180 Fentanyl Citrate 2,000 mcg/ (Sodium Chloride) 100 mls @ 0 mls/hr IV INF PRN; As Directed PRN Reason: Pain Labetalol HCl (Normodyne) 20 mg SLOW IVP Q4H PRN PRN Reason: Systolic BP > 180 Labetalol HCl (Normodyne) 10 mg SLOW IVP Q4H PRN PRN Reason: Systolic BP > 180 Loperamide HCl (Imodium) 2 mg PO PRN PRN PRN Reason: Diarrhea/Loose Stools Loratadine (Claritin) 10 mg PO DAILYPRN PRN PRN Reason: Sinus Symptoms Magnesium Hydroxide (Milk Of Magnesium) 30 ml PO DAILYPRN PRN PRN Reason: Constipation Metoprolol Succinate (Toprol Xl) 50 mg PO DAILY [facility] Metoprolol Succinate (Toprol Xl) 50 mg PO NOW [facility] Stop: 06/19/18 18:00 Mineral Oil/White Petrolatum (Eucerin Cream) 0 gm TOP BIDPRN PRN PRN Reason: Dry Skin Multivitamins (Theragran) 1 tab PO DAILY [facility] Last Admin: 06/19/18 08:16 Dose: 1 tab Naloxone HCl (Narcan) 0.2 mg IV Q5MIN PRN PRN Reason: Opiate Reversal Nicotine (Nicoderm Patch) 21 mg TD Q24HR [facility] Last Admin: 06/18/18 17:50 Dose: Not Given Nitroglycerin (Nitrostat) 0.4 mg SL Q5MIN PRN PRN Reason: Chest Pain Ondansetron HCl (Zofran Odt) 4 mg PO Q6H PRN PRN Reason: Nausea/Vomiting Ondansetron HCl (Zofran) 4 mg IVP Q6H PRN PRN Reason: Nausea/Vomiting Ondansetron HCl (Zofran) 4 mg IVP Q6H PRN PRN Reason: Nausea/Vomiting Pantoprazole Sodium (Protonix) 40 mg PO DAILY [facility] Last Admin: 06/19/18 08:16 Dose: 40 mg Phenol (Chloraseptic [place] 180 Ml Bot) 0 ml PO PRN PRN PRN Reason: Sore Throat Promethazine HCl (Phenergan) 12.5 mg IM Q4H PRN PRN Reason: Nausea/Vomiting Saccharomyces Boulardii (Florastor) 250 mg PO DAILY [facility] Last Admin: 06/19/18 08:16 Dose: 250 mg Senna (Senokot) 2 tab PO HSPRN PRN PRN Reason: Constipation Sodium Chloride ([place] Nasal [place] 0.65%) 0 ml EA NARE QIDPRN PRN PRN Reason: Nasal Congestion Sodium Chloride (Flush - Normal Saline) 10 ml IVF Q12HR [facility] Last Admin: 06/19/18 08:17 Dose: Not Given Sodium Chloride (Flush - Normal Saline) 10 ml IVF PRN PRN PRN Reason: Saline Flush Valsartan (Diovan) 80 mg PO DAILY [facility] Last Admin: 06/19/18 08:15 Dose: 80 mg Zolpidem Tartrate (Ambien) 5 mg PO HSPRN PRN PRN Reason: Insomnia
[2018-06-19] MEDS: Nicotine 21 MG PATCH TD SCH (17:49)
[2018-06-19] MEDS: Atorvastatin Calcium 20 MG TAB PO SCH (20:23)
[2018-06-19] MEDS: Heparin 5,000 UNITS/ML VIAL SC SCH (20:24)
[2018-06-20] MEDS: Bicalutamide 50 MG TAB PO SCH (09:29)
[2018-06-20] MEDS: Valsartan 80 MG TAB PO SCH (09:29)
[2018-06-20] MEDS: Saccharomyces boulardii 250 MG CAP PO SCH (09:30)
[2018-06-20] MEDS: Ferrous Gluconate 324 MG TAB PO SCH (09:30)
[2018-06-20] MEDS: Clopidogrel Bisulfate 75 MG TAB PO SCH (09:30)
[2018-06-20] MEDS: Multivit, Therapeutic 1 TAB PO SCH (09:30)
[2018-06-20] MEDS: Heparin 5,000 UNITS/ML VIAL SC SCH ×2 (09:31→20:20)
[2018-06-20] MEDS: Furosemide 40 MG TAB PO SCH (09:31)
[2018-06-20] MEDS: Amoxicillin/Potassium Clav 500 MG TAB PO SCH ×2 (09:31→20:20)
[2018-06-20] MEDS: Doxycycline 100 MG CAP PO SCH ×2 (09:34→20:20)
[2018-06-20] MEDS: Nicotine 21 MG PATCH TD SCH (15:37)
[2018-06-20] MEDS: Atorvastatin Calcium 20 MG TAB PO SCH (20:20)
--- NOTE | 2018-06-20 20:23 | PDOC.PN ---
- Subjective Encounter Start Date: 06/20/18 Encounter Start Time: 09:30 Patient seen and examined for gangrene. No new complaints. No overnight events - Objective Resuscitation Status: Resuscitation Status FULL:Full Resuscitation MAR Reviewed: Yes Vital Signs & Weight: Vital Signs (12 hours) Temp Pulse Resp BP Pulse Ox 06/20/18 16:32 97.8 F 88 16 149/85 H 100 06/20/18 11:59 82 16 131/79 Weight Admit Weight 145 lb 4 oz Weight 145 lb I&O: 06/19/18 06/20/18 06/21/18 06:59 06:59 06:59 Intake Total 395 1400 360 Balance 395 1400 360 Result Diagrams: 06/19/18 05:32 06/19/18 05:32 Phys Exam - Physical Examination Constitutional: NAD Respiratory: no wheezing, no rhonchi Cardiovascular: RRR, no rub Gastrointestinal: soft, non-tender, positive bowel sounds Musculoskeletal: no edema Neurological: moves all 4 limbs Dx/Plan - Plan DVT proph w/SCDs IMPRESSION: - Gangrene of L 4th toe s/p L BKA - PVD - on ASA and Plavix - Metastatic Prostatic Ca - on Casodex - CAD - HTN - HLD - Tobacco dep 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 Cont Augmentin/Doxycycline Cont current meds as below Cont ASA/Plavix Cont to monitor Review of Systems - Review of Systems Respiratory: negative: Cough, Dry, Shortness of Breath, Hemoptysis, SOB with Excertion, Pleuritic Pain, Sputum, Wheezing Cardiovascular: negative: chest pain, palpitations, orthopnea, paroxysmal nocturnal dyspnea, edema, light headedness, other - Medications/Allergies Allergies/Adverse Reactions: Allergies Allergy/AdvReac Type Severity Reaction Status Date / Time No Known Drug Allergies Allergy Verified 06/09/18 04:17 Medications: Current Medications Acetaminophen (Tylenol) 650 mg PO Q4H PRN PRN Reason: Headache/Fever or Pain Hydrocodone Bitart/Acetaminophen ([place] 10/325) 1 tab PO Q4H PRN PRN Reason: Pain 1-5 Last Admin: 06/19/18 20:24 Dose: 1 tab Hydrocodone Bitart/Acetaminophen ([place] 10/325) 2 tab PO Q4H PRN PRN Reason: Pain 6-10 Last Admin: 06/17/18 19:53 Dose: 2 tab Al Hydroxide/Mg Hydroxide (Maalox) 30 ml PO Q6H PRN PRN Reason: Heartburn or Indigestion Albuterol/Ipratropium (Duoneb) 3 ml NEB Q4H PRN PRN Reason: SOB Amoxicillin/Clavulanate Potassium (Augmentin) 500 mg PO Q12HR [facility] Last Admin: 06/20/18 09:31 Dose: 500 mg Artificial Tears (Tears Renewed 15ml Bottle) 0 drop EA EYE PRN PRN PRN Reason: Dry Eyes Aspirin (Aspirin Chewable) 81 mg PO DAILY [facility] Last Admin: 06/20/18 09:31 Dose: 81 mg Atorvastatin Calcium (Lipitor) 20 mg PO HS [facility] Last Admin: 06/19/18 20:23 Dose: 20 mg Bicalutamide (Casodex) 50 mg PO DAILY [facility] Last Admin: 06/20/18 09:29 Dose: 50 mg Clonidine (Catapres) 0.1 mg PO Q4H PRN PRN Reason: Systolic BP > 180 Clopidogrel Bisulfate (Plavix) 75 mg PO DAILY [facility] Last Admin: 06/20/18 09:30 Dose: 75 mg Diphenhydramine HCl (Benadryl) 25 mg IVP Q3H PRN PRN Reason: Itching Diphenhydramine HCl (Benadryl) 25 mg PO Q3H PRN PRN Reason: Itching Diphenhydramine HCl (Benadryl) 25 mg IM Q3H PRN PRN Reason: Itching Doxycycline Hyclate (Vibramycin) 100 mg PO BID [facility] Last Admin: 06/20/18 09:34 Dose: 100 mg Ferrous Gluconate (Fergon) 324 mg PO QAM-WM [facility] Last Admin: 06/20/18 09:30 Dose: 324 mg Furosemide (Lasix) 40 mg PO DAILY-AC [facility] Last Admin: 06/20/18 09:31 Dose: 40 mg Guaifenesin (Robitussin Sf) 200 mg PO Q4H PRN PRN Reason: Cough Heparin Sodium (Porcine) (Heparin) 5,000 units SC BID [facility] Last Admin: 06/20/18 09:31 Dose: 5,000 units Hydralazine HCl (Apresoline) 10 mg SLOW IVP Q4H PRN PRN Reason: SBP Greater Than 180 Fentanyl Citrate 2,000 mcg/ (Sodium Chloride) 100 mls @ 0 mls/hr IV INF PRN; As Directed PRN Reason: Pain Labetalol HCl (Normodyne) 10 mg SLOW IVP Q4H PRN PRN Reason: Systolic BP > 180 Loperamide HCl (Imodium) 2 mg PO PRN PRN PRN Reason: Diarrhea/Loose Stools Loratadine (Claritin) 10 mg PO DAILYPRN PRN PRN Reason: Sinus Symptoms Magnesium Hydroxide (Milk Of Magnesium) 30 ml PO DAILYPRN PRN PRN Reason: Constipation Metoprolol Succinate (Toprol Xl) 50 mg PO DAILY [facility] Last Admin: 06/20/18 09:30 Dose: 50 mg Mineral Oil/White Petrolatum (Eucerin Cream) 0 gm TOP BIDPRN PRN PRN Reason: Dry Skin Multivitamins (Theragran) 1 tab PO DAILY [facility] Last Admin: 06/20/18 09:30 Dose: 1 tab Naloxone HCl (Narcan) 0.2 mg IV Q5MIN PRN PRN Reason: Opiate Reversal Nicotine (Nicoderm Patch) 21 mg TD Q24HR [facility] Last Admin: 06/20/18 15:37 Dose: 21 mg Nitroglycerin (Nitrostat) 0.4 mg SL Q5MIN PRN PRN Reason: Chest Pain Ondansetron HCl (Zofran Odt) 4 mg PO Q6H PRN PRN Reason: Nausea/Vomiting Ondansetron HCl (Zofran) 4 mg IVP Q6H PRN PRN Reason: Nausea/Vomiting Ondansetron HCl (Zofran) 4 mg IVP Q6H PRN PRN Reason: Nausea/Vomiting Pantoprazole Sodium (Protonix) 40 mg PO DAILY [facility] Last Admin: 06/20/18 09:30 Dose: 40 mg Phenol (Chloraseptic [place] 180 Ml Bot) 0 ml PO PRN PRN PRN Reason: Sore Throat Promethazine HCl (Phenergan) 12.5 mg IM Q4H PRN PRN Reason: Nausea/Vomiting Saccharomyces Boulardii (Florastor) 250 mg PO DAILY [facility] Last Admin: 06/20/18 09:30 Dose: 250 mg Senna (Senokot) 2 tab PO HSPRN PRN PRN Reason: Constipation Sodium Chloride ([place] Nasal [place] 0.65%) 0 ml EA NARE QIDPRN PRN PRN Reason: Nasal Congestion Sodium Chloride (Flush - Normal Saline) 10 ml IVF Q12HR [facility] Last Admin: 06/20/18 09:35 Dose: Not Given Sodium Chloride (Flush - Normal Saline) 10 ml IVF PRN PRN PRN Reason: Saline Flush Valsartan (Diovan) 80 mg PO DAILY [facility] Last Admin: 06/20/18 09:29 Dose: 80 mg Zolpidem Tartrate (Ambien) 5 mg PO HSPRN PRN PRN Reason: Insomnia
--- NOTE | 2018-06-21 02:56 | PRG ---
DATE OF SERVICE: 06/20/2018 SUBJECTIVE: Mr. Rene is feeling alright today. His right leg is hanging up to the side of the bed, it feels better that way. The left BKA stump is not causing him any significant pain. His dressings are clean, soft. He has been working with physical therapy on transfers and inpatient rehab and occ upational therapy has been placed. I have recommended that he proceed with inpatient rehab. I also counseled him again about right leg as well and may be having possible ischemia on that side as well.
[2018-06-21 05:02] LABS: #Monocytes 0.7 thou/uL (0.11-0.59); #Neutrophils 12.7 thou/uL (1.40-6.50); %Basophils 0.1 % (0.0-1.0); %Eosinophils 0.3 % (0.0-10.0); %Lymphocytes 12.8 % (21.0-51.0); %Monocytes 4.8 % (0.0-10.0); %Neutrophils 82.1 % (42.0-75.0); Mean Corpuscular HGB CONC 31.8 g/dL (32.0-36.0); Mean Corpuscular Hemoglobin 28.5 pg (27.0-31.0); Mean Corpuscular Volume 89.6 fL (78.0-98.0); Mean Platelet Volume 7.9 fL (7.4-10.4); Platelet Count 255 thou/uL (130-400); Red Blood Cell (RBC) Count 2.11 mill/uL (4.70-6.10); White Blood Cell (WBC) Count 15.4 thou/uL (4.8-10.8)
[2018-06-21 05:13] LABS: Anion Gap 16 mmol/L (10-20); BUN (Urea Nitrogen) 23 mg/dL (8.4-25.7); Calc. Creatinine Clearance 102 mL/min (70-130); Calcium 9.3 mg/dL (7.8-10.44); Carbon Dioxide 19 mmol/L (23-31); Chloride 106 mmol/L (98-107); Estimated GFR-MDRD Greater than 90; Glucose 128 mg/dL (83-110); Magnesium 1.7 mg/dL (1.6-2.6); Potassium 4.2 mmol/L (3.5-5.1); Sodium 137 mmol/L (136-145)
[2018-06-21] MEDS: Valsartan 80 MG TAB PO SCH (08:41)
[2018-06-21] MEDS: Amoxicillin/Potassium Clav 500 MG TAB PO SCH (08:46)
[2018-06-21] MEDS: Bicalutamide 50 MG TAB PO SCH (08:46)
[2018-06-21] MEDS: Ferrous Gluconate 324 MG TAB PO SCH (08:47)
[2018-06-21] MEDS: Doxycycline 100 MG CAP PO SCH (08:47)
[2018-06-21] MEDS: Furosemide 40 MG TAB PO SCH (08:47)
[2018-06-21] MEDS: Saccharomyces boulardii 250 MG CAP PO SCH (08:47)
[2018-06-21] MEDS: Multivit, Therapeutic 1 TAB PO SCH (08:47)
--- NOTE | 2018-06-21 17:13 | PDOC.PN ---
- Subjective Encounter Start Date: 06/21/18 Encounter Start Time: 10:00 Patient seen and examined for Gangrene s/p L BKA. Intermittent confusion per RN. No overnight events - Objective Resuscitation Status: Resuscitation Status FULL:Full Resuscitation MAR Reviewed: Yes Vital Signs & Weight: Vital Signs (12 hours) Temp Pulse Resp BP BP Pulse Ox 06/21/18 11:24 96.6 F L 114 H 20 93/63 06/21/18 08:00 98.6 F 104 H 19 100 06/21/18 07:28 98.6 F 104 H 19 103/72 100 Weight Admit Weight 145 lb 4 oz Weight 145 lb I&O: 06/20/18 06/21/18 06/22/18 06:59 06:59 06:59 Intake Total 1400 660 0 Balance 1400 660 0 Result Diagrams: 06/21/18 04:38 06/21/18 04:38 EKG Reviewed by me: Yes ([facility]) Phys Exam - Physical Examination Constitutional: NAD Neck: no JVD Respiratory: no wheezing, no rales, no rhonchi, clear to auscultation bilateral Cardiovascular: RRR, no rub no heaves/pulsations Gastrointestinal: soft, non-tender, no distention, positive bowel sounds Musculoskeletal: no edema Left LE immobilizer + Neurological: non-focal, normal sensation, moves all 4 limbs AAO x 2 Dx/Plan - Plan PT/OT IMPRESSION: - Gangrene of L 4th toe s/p L BKA - Toxic Metabolic Encephalopathy - multifactorial - Anemia - multifactorial ? acute blood loss - PVD - on ASA and Plavix - Metastatic Prostatic Ca - on Casodex - CAD - HTN - BP on lower side - HLD - Tobacco dep PLAN: Hold Heparin/Plavix Hold Losartan Change Toprol XL to Metoprolol 12.5 mg BID Transfuse [address] [facility] for close monitoring due to persistent tachycardia [employer] for pain control Cont Augmentin/Doxycycline Cont current meds as below Cont pulse Ox Reticulocyte count in AM Check stool for occult blood CXR Review of Systems - Review of Systems Constitutional: negative: fever, chills, sweats, weakness, malaise, other Respiratory: negative: Cough, Dry, Shortness of Breath, Hemoptysis, SOB with Excertion, Pleuritic Pain, Sputum, Wheezing Cardiovascular: negative: chest pain, palpitations, orthopnea, paroxysmal nocturnal dyspnea, edema, light headedness, other - Medications/Allergies Allergies/Adverse Reactions: Allergies Allergy/AdvReac Type Severity Reaction Status Date / Time No Known Drug Allergies Allergy Verified 06/09/18 04:17 Medications: Current Medications Acetaminophen (Tylenol) 650 mg PO Q4H PRN PRN Reason: Headache/Fever or Pain Al Hydroxide/Mg Hydroxide (Maalox) 30 ml PO Q6H PRN PRN Reason: Heartburn or Indigestion Albuterol/Ipratropium (Duoneb) 3 ml NEB Q4H PRN PRN Reason: SOB Amoxicillin/Clavulanate Potassium (Augmentin) 500 mg PO Q12HR [facility] Last Admin: 06/21/18 08:46 Dose: 500 mg Artificial Tears (Tears Renewed 15ml Bottle) 0 drop EA EYE PRN PRN PRN Reason: Dry Eyes Aspirin (Aspirin Chewable) 81 mg PO DAILY [facility] Last Admin: 06/21/18 08:47 Dose: 81 mg Atorvastatin Calcium (Lipitor) 20 mg PO HS [facility] Last Admin: 06/20/18 20:20 Dose: 20 mg Bicalutamide (Casodex) 50 mg PO DAILY [facility] Last Admin: 06/21/18 08:46 Dose: 50 mg Clonidine (Catapres) 0.1 mg PO Q4H PRN PRN Reason: Systolic BP > 180 Clopidogrel Bisulfate (Plavix) 75 mg PO DAILY [facility] Last Admin: 06/20/18 09:30 Dose: 75 mg Diphenhydramine HCl (Benadryl) 25 mg IVP Q3H PRN PRN Reason: Itching Diphenhydramine HCl (Benadryl) 25 mg PO Q3H PRN PRN Reason: Itching Diphenhydramine HCl (Benadryl) 25 mg IM Q3H PRN PRN Reason: Itching Doxycycline Hyclate (Vibramycin) 100 mg PO BID [facility] Last Admin: 06/21/18 08:47 Dose: 100 mg Ferrous Gluconate (Fergon) 324 mg PO QAM-WM [facility] Last Admin: 06/21/18 08:47 Dose: 324 mg Furosemide (Lasix) 40 mg PO DAILY-AC [facility] Last Admin: 06/21/18 08:47 Dose: 40 mg Guaifenesin (Robitussin Sf) 200 mg PO Q4H PRN PRN Reason: Cough Hydralazine HCl (Apresoline) 10 mg SLOW IVP Q4H PRN PRN Reason: SBP Greater Than 180 Fentanyl Citrate 2,000 mcg/ (Sodium Chloride) 100 mls @ 0 mls/hr IV INF PRN; As Directed PRN Reason: Pain Labetalol HCl (Normodyne) 10 mg SLOW IVP Q4H PRN PRN Reason: Systolic BP > 180 Loperamide HCl (Imodium) 2 mg PO PRN PRN PRN Reason: Diarrhea/Loose Stools Loratadine (Claritin) 10 mg PO DAILYPRN PRN PRN Reason: Sinus Symptoms Magnesium Hydroxide (Milk Of Magnesium) 30 ml PO DAILYPRN PRN PRN Reason: Constipation Metoprolol Tartrate (Lopressor) 12.5 mg PO BID [facility] Mineral Oil/White Petrolatum (Eucerin Cream) 0 gm TOP BIDPRN PRN PRN Reason: Dry Skin Multivitamins (Theragran) 1 tab PO DAILY [facility] Last Admin: 06/21/18 08:47 Dose: 1 tab Naloxone HCl (Narcan) 0.2 mg IV Q5MIN PRN PRN Reason: Opiate Reversal Nitroglycerin (Nitrostat) 0.4 mg SL Q5MIN PRN PRN Reason: Chest Pain Ondansetron HCl (Zofran Odt) 4 mg PO Q6H PRN PRN Reason: Nausea/Vomiting Ondansetron HCl (Zofran) 4 mg IVP Q6H PRN PRN Reason: Nausea/Vomiting Ondansetron HCl (Zofran) 4 mg IVP Q6H PRN PRN Reason: Nausea/Vomiting Pantoprazole Sodium (Protonix) 40 mg PO DAILY [facility] Last Admin: 06/21/18 08:47 Dose: 40 mg Phenol (Chloraseptic [place] 180 Ml Bot) 0 ml PO PRN PRN PRN Reason: Sore Throat Promethazine HCl (Phenergan) 12.5 mg IM Q4H PRN PRN Reason: Nausea/Vomiting Saccharomyces Boulardii (Florastor) 250 mg PO DAILY [facility] Last Admin: 06/21/18 08:47 Dose: 250 mg Senna (Senokot) 2 tab PO HSPRN PRN PRN Reason: Constipation Sodium Chloride ([place] Nasal [place] 0.65%) 0 ml EA NARE QIDPRN PRN PRN Reason: Nasal Congestion Sodium Chloride (Flush - Normal Saline) 10 ml IVF Q12HR [facility] Last Admin: 06/21/18 08:47 Dose: Not Given Sodium Chloride (Flush - Normal Saline) 10 ml IVF PRN PRN PRN Reason: Saline Flush Valsartan (Diovan) 80 mg PO DAILY [facility] Last Admin: 06/21/18 08:41 Dose: Not Given
[2018-06-21 17:20] LABS: Base Excess (BEa) -10.8 mEq/L (-2.0 to +3.0); CO2 Tension 17.4 mmHg (35.0-45.0); Hemoglobin (Hb) 6.6 g/dL (14.0-18.0); O2 Tension (PaO2) 131.1 mmHg (> 70.0); pH, Arterial 7.46 (7.35-7.45)
[2018-06-21 17:21] LABS: Calcium, Ionized 1.1 mmol/L (1.12-1.30); Puncture Site RA
--- NOTE | 2018-06-21 17:27 | PDOC.EVN ---
Event Note - Event Note Event Note: ABG reviewed. Hb 6.6. Will transfuse 1 more unit PRBC
--- NOTE | 2018-06-21 17:37 | RAD ---
PORTABLE CHEST 1 VIEW: Date: 06/21/18 Time: 1621 hours HISTORY: Shortness of breath. Hypoxia. FINDINGS: The heart size is normal. The aorta is tortuous. The lungs are expanded without focal areas of consol idation, pneumothorax, or pleural effusions. IMPRESSION: No acute process. POS: ALISSA
--- NOTE | 2018-06-21 20:39 | PDOC.GSPN ---
Surgery Progress Note: Subj - Subjective Narrative: Patient transferred to telemetry floor for A. fib with RVR. He denies any chest pain shortness of breath or palpitations. He is not having much pain in his leg. White count is up slightly to 15. The stump was examined today and is clean and healthy in appearance. The skin is warm and there is no erythema or induration. Assessment/plan: Status post left BKA. Healing well. Immediately dressing changes with Xeroform Kerlix and Rafy bandages. Continue PT and OT. Patient would benefit from inpatient rehabilitation, and this consult has been sent. Surgery Progress Note: Obj - Vital signs Vital signs: Vital Signs - Most Recent Temp Pulse Resp BP Pulse Ox 97.5 F L 114 H 20 104/66 86 L 06/21/18 16:00 06/21/18 16:00 06/21/18 16:00 06/21/18 16:00 06/21/18 16:00 Surgery Progress Note: Results - Labs Result Diagrams: 06/21/18 04:38 06/21/18 04:38 Lab results: Laboratory Results - last 24 hr 06/21/18 06/21/18 08:04 16:40 Specimen Type ARTERIAL Puncture Site RA Bicarbonate Actual 12.0 L ABG pH 7.46 H ABG pCO2 17.4 L* ABG pO2 131.1 H ABG O2 Sat Calc/[place] 99.1 H ABG O2 Content 9.3 L ABG Base Excess -10.8 L ABG Hematocrit 19.0 L ABG Hemoglobin 6.6 L ABG Carboxyhemoglobin 2.0 ABG Methemoglobin 0.30 Jaylen Test POSITIVE A-a O2 Gradient 46.790 H Sodium 136 Potassium 5.2 Chloride 105 Ionized Calcium 1.1 L Mode of Support NC 2 LPM Inspired O2 28 Blood Type O POSITIVE Antibody Screen NEGATIVE Crossmatch See Detail
[2018-06-21] MEDS ORDERED: Metoprolol Tartrate 25 MG TAB PO SCH (21:00)
[2018-06-21] MEDS ORDERED: Dextrose 50% Abboject 50 ML SYRINGE ONE (21:56)
--- NOTE | 2018-06-21 22:42 | PDOC.EVN ---
Event Note - Event Note Event Note: pt found unresponsive by RN, code blue initiated, acls protocol followed, please see code sheet for details, pt was found to be in refractory ventricular fibrillation, PEA, and lastly persistent asystole, we have given updates to family members, son and daughter in law,during the code, code has been extended more than 45 minutes, there is no evidence of any meaningful recovery for the pt at this point, all possible etiologies have been addressed, as per acls protocol with no clinical response, treatment at this point will cause more harm than any possible benefits. for that reason code has been ended , pt pronounced . I have met family members at bedside, and we have given them updates, treatment and our findings during the code, we will be available for any help needed by the family during this difficult moment.
[2018-06-22 00:33] VITALS: BP 107/63; TEMP 97.4
--- NOTE | 2018-06-22 09:34 | DS ---
DATE OF : 06/21/2018 BRIEF HOSPITAL COURSE: The patient was a 72-year-old -[place] male with coronary artery dise ase, prostate cancer with ongoing tobacco abuse who presented to the hospital with discoloration of t he left fourth toe. His workup was consistent with left fourth toe cellulitis/gangrene with possible osteomyelitis. Lower extremity ultrasound showed peripheral vascular disease. The patient was seen by General Surgery as well as vascular. He underwent abdominal aortogram that showed significant pe ripheral vascular disease. The patient was seen by General Surgery who recommended a left below-the- knee amputation, which was performed on 06/18/2018. Postoperatively, patient developed anemia requir ing 2 units of PRBC. He had some encephalopathy on the last day for which he was transferred to tele metry. Blood gases were also done which were unremarkable except for bicarbonate of 17.4. Debby power was called on 06/21/2018 for unresponsiveness. The patient was pronounced at 2217. Family was noti fied. FINAL DIAGNOSES: 1. Gangrene/cellulitis of the left fourth toe, status post left [id number] amputation. 2. Anemia, multifactorial, suspected acute blood loss anemia. 3. Toxic metabolic encephalopathy. 4. Severe peripheral vascular disease. 5. Tobacco dependence. 6. Metastatic prostate cancer. 7. Coronary artery disease. 8. Hypertension. 9. Hyperlipidemia. Plan of care was discussed with the family by the on-call physician. They stated understanding.
[2018-06-22] MEDS ORDERED: Magnesium 5 GM/10 ML Abboject SYRINGE ONE (13:45)
[2018-06-22] MEDS ORDERED: Lidocaine 2% PF 100 mg/5 ml Syringe ONE (13:45)
[2018-06-22] MEDS ORDERED: EPINEPHrine 1 MG/10 ML Abboject SYRINGE ONE ×2 (13:45→13:46)
[2018-06-22] MEDS ORDERED: Sodium Bicarb 50 MEQ/50 ML Abboject 8.4% SYRINGE ONE (13:45)
[2018-06-22] MEDS ORDERED: Calcium Chloride 1 GM/10 ML Abboject SYRINGE ONE (13:45)
[2018-06-22] MEDS ORDERED: Dextrose 50% Abboject 50 ML SYRINGE ONE (13:46)
== END 2018-06-22 01:54 | disposition expired | DRG 239 ==
LOC: ERS 12:04 → T4-B 14:28 → 2NO 06-21 16:03
PROVIDERS: ADMIT Internal Medicine; ATTEND Internal Medicine
PROC: B41DYZZ Fluoroscopy of Aorta and Bilateral Lower Extremity Arteries using Other Contrast (ICD-10-PCS; principal; 2018-06-13)
PROC: 0Y6J0Z2 Detachment at Left Lower Leg, Mid, Open Approach (ICD-10-PCS; 2018-06-18)
PROC: 30233N1 Transfusion of Nonautologous Red Blood Cells into Peripheral Vein, Percutaneous Approach (ICD-10-PCS; 2018-06-21)
DX: I70.268 Atherosclerosis of native arteries of extremities with gangrene, other extremity (principal); G92 Toxic encephalopathy; I50.22 Chronic systolic (congestive) heart failure; E44.0 Moderate protein-calorie malnutrition; Z68.1 Body mass index [BMI] 19.9 or less, adult; C79.51 Secondary malignant neoplasm of bone; I97.89 Other postprocedural complications and disorders of the circulatory system, not elsewhere classified; D62 Acute posthemorrhagic anemia; D72.819 Decreased white blood cell count, unspecified; Z72.0 Tobacco use; D64.9 Anemia, unspecified; K21.9 Gastro-esophageal reflux disease without esophagitis; I11.0 Hypertensive heart disease with heart failure; E78.5 Hyperlipidemia, unspecified; I25.10 Atherosclerotic heart disease of native coronary artery without angina pectoris; L03.032 Cellulitis of left toe; E87.6 Hypokalemia; Z89.022 Acquired absence of left finger(s); Z79.82 Long term (current) use of aspirin; I65.29 Occlusion and stenosis of unspecified carotid artery; I71.2 Thoracic aortic aneurysm, without rupture; I70.0 Atherosclerosis of aorta; R00.0 Tachycardia, unspecified; Y83.5 Amputation of limb(s) as the cause of abnormal reaction of the patient, or of later complication, without mention of misadventure at the time of the procedure; Y92.230 Patient room in hospital as the place of occurrence of the external cause; I48.91 Unspecified atrial fibrillation; I49.01 Ventricular fibrillation; C61 Malignant neoplasm of prostate
CPT/HCPCS: 36246; 36247; 36415; 36416; 36430; 70498; 71045; 75630; 75716; 76942; 80048; 80053; 80202; 81001; 82805; 83735; 84153; 85025; 85610; 85652; 86140; 86850; 86900; 86901; 88307; 93306; 93880; 93923; 94640; 99285; A4216; C1769; G8978-GP-CL; G8979-GP-CJ; G8987-GO-CL; G8988-GO-CJ; J0171; J0282; J1100; J1644; J1650; J2001; J2270; J2405; J2543; J2704; J3010; J3370; J3475; J7050; J7620; P9016